=== PATIENT | male | born 1970 | race Caucasian/White ===

== ENCOUNTER 2021-08-07 11:17 | Inpatient (IN) | payer OTHER, SELFPAY ==
[2021-08-07 11:22] VITALS: BP 151/91; PULSE 76; RESP 18; O2SAT 98; BMI 31.9
--- NOTE | 2021-08-07 11:24 | ED.C_ITS ---
HPI - Psych General: Chief Complaint: Psychiatric Symptoms Stated Complaint: WANTS NPU ADMIT, STRESSED Time Seen by Provider: 08/07/21 11:20 Source: patient Mode of arrival: ambulatory History of Present Illness: 51-year-old female presents to the ER via EMS. 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 When the nurse and I went to talk to him he states he is having chest pain that is unchanged for over a week he also has elevated blood pressure he is not been taking medications. And then lastly he admits he is suicidal. Admits he has been suicidal and had thoughts of suicide for several years he is previously been adm itted to psychiatric unit for but he is never done anything to advance lethality is never actually tried to harm himself in any way. Does not express a particular plan at this time. complaint: suicidal ideation Onset (ago): week(s) Duration: intermittent Relieving factors: none Exacerbating factors: none Context: recent alcohol abuse (History of alcohol abuse) Associated psychiatric symptoms: depression Associated symptoms: Reports suicidal ideation Treatments prior to arrival: none If self harm: admits thoughts of self harm (Has had thoughts of self-harm for years has never advance lethality) Review of Systems Const: Denies: fever(s), chills, body aches, change in appetite, fatigue or malaise ENMT: Denies: throat pain, ear or mastoid pain, nasal discharge or nasal congestion Card: Denies: chest pain, edema, dyspnea on exertion or orthopnea Resp: Denies: dyspnea, productive cough or non-productive cough GI: Denies: abdominal pain, nausea, vomiting, hematemesis, coffee ground emesis, diarrhea, constipation, bloating, hematochezia or melena Psych: Reports: suicidal ideation [facility] ED PFSH: Medical History MDD (major depressive disorder), single episode, severe with psychotic features Psychiatric care Psychiatric care PTSD (post-traumatic stress disorder) Social History (Updated 08/07/21 @ 11:33 by Be Mcintosh DO) Alcohol intake: current Physical Exam Const: GENERAL APPEARANCE: cooperative and comfortable ORIENTAT ION/CONSCIOUSNESS: Yes awake, Yes oriented to person, Yes oriented to place and Yes oriented to time HENMT: COMMON NORMALS: normocephalic, atraumatic and hearing grossly normal bilaterally HEAD & SCALP: normocephalic and atraumatic Neck/C-Spine: COMMON NORMALS: no JVD Resp: COMMON NORMALS: normal respiratory effort, No retractions, No use of accessory muscles and clear to auscultation bilaterally AUSCULTATION: clear to auscultation bilaterally Cardio: COMMON NORMALS: no JVD, regular rate, regular rhythm and No murmurs present (Cardio) RATE: regular rate RHYTHM: regular rhythm GI: COMMON NORMALS: Soft to palpation and No hepatosplenomegaly present AUSCULTATION: Yes normoactive bowel sounds PALPATION: Yes Soft to palpation, No Tenderness to palpation present (GI), No Guarding due to palpation present (GI) and Yes No hepatosplenomegaly present Extremity: COMMON NORMALS: normal to inspection, capillary refill normal, no clubbing, cyanosis or edema, no calf tenderness and no pedal edema Neuro: SENSORIUM/ORIENTATION: Yes oriented to person, Yes oriented to place and Yes oriented to time Skin: COMMON NORMALS: no rashes or lesions noted GENERAL SKIN EXAM: no rashes or lesions noted Course Vital Signs: Vital signs: Vital Signs Temperature 98 F 08/08/21 06:00 Pulse Rate 96 08/08/21 06:00 Respiratory Rate 18 08/08/21 06:00 Blood Pressure 164/92 08/08/21 06:00 Pulse Oximetry 99 08/08/21 06:00 [facility] - Psych Medical Decision Making Patient expressing suicidal ideation. Discussed Dr. Wilson he recommends admission orders written see the note. Lab Data I reviewed the patient's lab results. : 08/07/21 12:05 08/07/21 12:05 Laboratory Results WBC 9.0 10^3/uL (4.0-10.0) 08/07/21 12:05 RBC 4.08 10^6/uL (4.1-5.3) L 08/07/21 12:05 Hgb 13.4 g/dL (11.7-16.6) 08/07/21 12:05 Hct 39.9 % (42.0-52.0) L 08/07/21 12:05 MCV 97.8 fl (80-94) H 08/07/21 12:05 MCH 32.8 pg (28.0-34.0) 08/07/21 12:05 MCHC 33.6 g/dL (30.0-36.0) 08/07/21 12:05 RDW 13.3 % (12.1-15.1) 08/07/21 12:05 Plt Count 303 10^3/cmm (130-400) 08/07/21 12:05 MPV 9.3 fL (7.4-10.4) 08/07/21 12:05 Neut % (Auto) 53.7 % 08/07/21 12:05 Lymph % (Auto) 32.2 % 08/07/21 12:05 Mclean % (Auto) 8.1 % 08/07/21 12:05 Eos % (Auto) 5.0 % 08/07/21 12:05 Baso % (Auto) 0.7 % 08/07/21 12:05 Neut # (Auto) 4.83 10^3/uL (1.8-7.7) 08/07/21 12:05 Lymph # (Auto) 2.9 10^3/uL (0.8-4.8) 08/07/21 12:05 Mclean # (Auto) 0.7 10^3/uL (0.2-0.9) 08/07/21 12:05 Eos # (Auto) 0.5 10^3/uL (0.0-0.8) 08/07/21 12:05 Baso # (Auto) 0.1 10^3/uL (0.0-0.1) 08/07/21 12:05 Nucleated RBC % (auto) 0 % 08/07/21 12:05 Nucleated RBCs # 0.0 /100WBC 08/07/21 12:05 Sodium 137 mmol/L (136-145) 08/07/21 12:05 Potassium 4.5 mmol/L (3.5-5.1) 08/07/21 12:05 Chloride 102 mmol/L (98-107) 08/07/21 12:05 Carbon Dioxide 25 mmol/L (22-29) 08/07/21 12:05 Anion Gap 14.5 (5-19) 08/07/21 12:05 BUN 21 mg/dL (6-20) H 08/07/21 12:05 Creatinine 0.7 mg/dL (0.7-1.2) 08/07/21 12:05 GFR Calculation 118.9 mL/min (90-130) 08/07/21 12:05 Glucose 99 mg/dL (65-115) 08/07/21 12:05 Calculated Osmolality 287 mOsm/kg (285-295) 08/07/21 12:05 Calcium 8.8 mg/dL (8.5-10.5) 08/07/21 12:05 Total Bilirubin 0.2 mg/dL (0.15-1.2) 08/07/21 12:05 AST 24 U/L (0-40) 08/07/21 12:05 ALT 11 U/L (0-41) 08/07/21 12:05 Alkaline Phosphatase 101 IU/L (40-130) 08/07/21 12:05 Troponin T Baseline 9 ng/L (0-15) 08/07/21 12:05 Troponin T 120 Minute 8.64 ng/L (0-15) 08/07/21 14:05 Delta Troponin T -0.36 ABS# (0-10) L 08/07/21 14:05 Total Protein 6.0 g/dL (6.6-8.7) L 08/07/21 12:05 Albumin 4.1 g/dL (3.5-5.2) 08/07/21 12:05 Globulin 1.9 g/dL (1.3-4.6) 08/07/21 12:05 Salicylates < 0.3 mg/dL (3-10) L 08/07/21 12:05 Acetaminophen < 5.0 ug/mL (10-30) L 08/07/21 12:05 Ethyl Alcohol < 10 mg/dL (0-10) 08/07/21 14:05 Discharge Plan Discharge Patient Disposition: Admitted As Inpatient Admit Provider: Jair Wilson Clinical Impression: Suicidal ideation, Acute psychosis, Chronic schizophrenia Condition: Stable Coding Level of Care Code ED Director Of Security for Carl[facility] Fwd Exam Comprehensive
--- NOTE | 2021-08-07 11:36 | ECG_ITS ---
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 Measurements Intervals [place] Rate: 70 P: 24 DE: 145 QRS: 25 QRSD: 88 T: 22 QT: 452 QTc: 488 Interpretive Statements SINUS RHYTHM MINIMAL VOLTAGE CRITERIA FOR LVH, CONSIDER NORMAL VARIANT [MEETS CRITERIA IN ONE OF: R(aVL), S(V1), R(V5), R(V5/V6)+S(V1)] PROLONGED QT INTERVAL No previous ECG available for comparison Electronically Signed On 08-07-2021 13:22:10 TILE CONDUIT LAYER by Sommer Jorge M.D. [id number]
[2021-08-07 11:58] VITALS: BP 149/101; PULSE 77; RESP 18; TEMP 36.8; O2SAT 97
[2021-08-07 12:17] LABS: Basophils # 0.1 10^3/uL (0.0-0.1); Basophils % 0.7 %; Eosinophils # 0.5 10^3/uL (0.0-0.8); Hematocrit 39.9 % (42.0-52.0); Hemoglobin 13.4 g/dL (11.7-16.6); Lymphocytes # 2.9 10^3/uL (0.8-4.8); Lymphocytes % 32.2 %; Mean Corpuscular HGB Conc 33.6 g/dL (30.0-36.0); Mean Corpuscular Hemoglobin 32.8 pg (28.0-34.0); Mean Corpuscular Volume 97.8 fl (80-94); Mean Platelet Volume 9.3 fL (7.4-10.4); Monocytes # 0.7 10^3/uL (0.2-0.9); Monocytes % 8.1 %; Neutrophils # 4.83 10^3/uL (1.8-7.7); Neutrophils % 53.7 %; Nucleated Red Blood Cells % 0 %; Platelet Count 303 10^3/cmm (130-400); Red Blood Count 4.08 10^6/uL (4.1-5.3); Red Cell Distribution Width 13.3 % (12.1-15.1)
[2021-08-07 12:49] LABS: Alanine Aminotransferase 11 U/L (0-41); Albumin Level 4.1 g/dL (3.5-5.2); Alkaline Phosphatase 101 IU/L (40-130); Anion Gap 14.5 (5-19); Aspartate Amino Transferase 24 U/L (0-40); Blood Urea Nitrogen 21 mg/dL (6-20); Calcium 8.8 mg/dL (8.5-10.5); Carbon Dioxide 25 mmol/L (22-29); Chloride 102 mmol/L (98-107); Globulin 1.9 g/dL (1.3-4.6); Glomerular Filtration Rate 118.9 mL/min (90-130); Glucose 99 mg/dL (65-115); Osmolality Calculated 287 mOsm/kg (285-295); Potassium 4.5 mmol/L (3.5-5.1); Sodium 137 mmol/L (136-145); Total Bilirubin 0.2 mg/dL (0.15-1.2)
[2021-08-07 12:55] LABS: Acetaminophen < 5.0 ug/mL (10-30); Salicylate < 0.3 mg/dL (3-10); Troponin(5th) Baseline 9 ng/L (0-15)
--- NOTE | 2021-08-07 13:36 | ECG_ITS ---
[facility] Test Date: 2021-08-07 Pat Name: Sharan Su Department: Room: Gender: Male Equity Director: : 1970 Requested By: Be Nelson Order Number: [id number] Chema MD: Sommer Jorge M.D. Measurements Intervals [place] Rate: 65 P: 0 [place]: 136 QRS: 24 QRSD: 88 T: 57 QT: 461 QTc: 480 Interpretive Statements SINUS RHYTHM PROLONGED QT INTERVAL Compared to ECG 08/07/2021 11:55:35 No significant changes Electronically Signed On 08-08-2021 5:27:09 SCHOOL ADMINISTRATOR by Sommer Jorge M.D. [id number]
[2021-08-07 14:37] LABS: Troponin 5 2HR 8.64 ng/L (0-15)
[2021-08-07 14:46] LABS: Troponin 5 2HR Delta -0.36 ABS# (0-10)
[2021-08-07 18:02] VITALS: BP 201/113; PULSE 78; RESP 18; TEMP 36.7; O2SAT 96
--- NOTE | 2021-08-07 18:28 | PC.NURSE ---
Admission 51-year-old female presents to the ER via EMS. 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 When the nurse and I went to talk to him he states he is having chest pain that is unchanged for over a week he also has elevated blood pressure he is not been taking medications. And then lastly he admits he is suicidal. Admits he has been suicidal and had thoughts of suicide for several years he is previously been admitted to psychiatric unit for but he is never done anything to advance lethality is never actually tried to harm himself in any way. Does not express a particular plan at this time. NPU- Hx of Depression, anxiety, PTSD per ER. Patient reports ETOH abuse with no official dx other than that. Drinking for 20 years daily, 1/2-1 gallon of whiskey at this time. Has been in rehab in the past but unsure when or where. It was not effective. States lost job and building to drinking more. Depression increasing with SI. Denies plan or intent but has intrusive thoughts.
[2021-08-07] MEDS: hyDROXYzine 25 mg Capsule 50 MG PO (18:47)
[2021-08-07] MEDS: acetaminophen 325 mg Tablet 650 MG PO (18:47)
[2021-08-07] MEDS: mirtazapine 15 mg Tablet 45 MG PO (21:58)
[2021-08-07] MEDS: gabapentin 400 mg Capsule 800 MG PO (21:58)
[2021-08-07 22:00] VITALS: BP 168/100; PULSE 70; RESP 18; TEMP 36.7; O2SAT 96
[2021-08-07] MEDS: LORazepam 2 mg Tablet PO (23:13)
[2021-08-08 02:43] LABS: Alcohol Level < 10 mg/dL (0-10)
[2021-08-08 06:00] VITALS: BP 164/92; PULSE 96; RESP 18; TEMP 36.6; O2SAT 99
[2021-08-08] MEDS: acetaminophen 325 mg Tablet 650 MG PO (07:13)
[2021-08-08] MEDS: nicotine 2 mg Gum BUCCAL (07:15)
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
[2021-08-08] MEDS: gabapentin 400 mg Capsule 800 MG PO ×3 (09:07→21:33)
[2021-08-08] MEDS: folic acid 1 mg Tablet PO (09:07)
[2021-08-08] MEDS: famotidine 20 mg Tablet PO ×2 (09:07→17:05)
[2021-08-08] MEDS: multivitamin therapeutic Tablet 1 TAB PO (09:07)
[2021-08-08] MEDS: thiamine 100 mg Tablet PO (09:07)
[2021-08-08] MEDS: nicotine 21 mg Patch 1 PATCH TRANSDERMA (09:16)
--- NOTE | 2021-08-08 12:59 | NPU.GN ---
[facility] Unit Group Topic: Self Care General Mood of Group: Sharan did attend and participate in group today. Hygiene was ok. He seems a bit shy and not very talkative in group.
[2021-08-08] MEDS: LORazepam 2 mg/mL INJ 1 mL IM (13:11)
[2021-08-08 13:25] VITALS: BP 118/87; PULSE 87; RESP 18; TEMP 36.6; O2SAT 98
[2021-08-08] MEDS: chlordiazePOXIDE 25 mg Capsule PO ×2 (13:31→21:33)
--- NOTE | 2021-08-08 15:44 | PC.NURSE ---
@ 1305 Patient noted with decreased responsiveness and thrashing around in bed. Patient observed for one minute.. Patient was disoriented, diaphoretic, tremors and noted nystagmus. Nurse requested prn medication for seizures. Physician notified.
[2021-08-08] MEDS: lurasidone 20 mg Tablet PO (17:05)
--- NOTE | 2021-08-08 18:42 | PC.NURSE ---
Meds- Patient had good morning with minimal withdraw s/sx. At 1305 patient was heard joy in room. Staff to room, patient CIWA scored at 23 at that time. Seizure like activity noted. IM Ativan given per protocol. notified and gave new orders to start Librium 25 mg PO Q6 hours routine. Initial dose given at 1330. Patient has since been calm. Medications have been effective.
[2021-08-08 20:24] VITALS: BP 156/103; PULSE 91; RESP 16; TEMP 36.6; O2SAT 98
[2021-08-08] MEDS: mirtazapine 15 mg Tablet 45 MG PO (21:33)
[2021-08-09] MEDS: chlordiazePOXIDE 25 mg Capsule PO ×4 (00:41→18:56)
[2021-08-09] MEDS: trazodone 50 mg Tablet PO (00:43)
[2021-08-09 05:42] VITALS: BP 154/93; PULSE 85; RESP 17; TEMP 36.7; O2SAT 98
[2021-08-09] MEDS: multivitamin therapeutic Tablet 1 TAB PO (08:55)
[2021-08-09] MEDS: thiamine 100 mg Tablet PO (08:55)
[2021-08-09] MEDS: folic acid 1 mg Tablet PO (08:55)
[2021-08-09] MEDS: famotidine 20 mg Tablet PO ×2 (08:55→16:58)
[2021-08-09] MEDS: gabapentin 400 mg Capsule 800 MG PO ×3 (08:55→21:30)
[2021-08-09] MEDS: nicotine 21 mg Patch 1 PATCH TRANSDERMA (11:02)
--- NOTE | 2021-08-09 11:15 | P.NPUPN_ITS ---
Subjective NPU Subjective: Interval history: Patient presents today doing much better he reports after we started Librium 25 mg 4 times daily scheduled after he did have a witnessed seizure. There was no sequela after a short postictal period. He reports he is feeling significantly better and is glad that he embarked on this recovery mission. He is doing fine on his home psychiatric medications right now and is eating and sleeping better. Mental Status Exam MSE Comments: This is an overweight versus obese white male in hospital scrubs with limited grooming and eye contact. No abnormal movements except for mild psychomotor retardation. Cooperative with exam in no acute distress. Speech was decreased rate and volume. Mood described as a little better, affect slightly subdued. Thought process organized. Thought contact: patient denies suicidal or homicidal ideation, there were no delusions reported or noted, patient endorsed some perceptual disturbances with his current withdrawal. Attention and concentration appeared intact and memory appeared reliable but none were formally tested. Patient is alert and oriented times three. Insight and judgment appear fair and impulse control appears limited. Vitals/I&O/Wt Last Vital Signs Temp 98.0 F 08/09/21 05:42 Pulse 85 08/09/21 05:42 Resp 17 08/09/21 05:42 BP 154/93 08/09/21 05:42 Pulse Ox 98 08/09/21 05:42 Weight last 48 hrs Weight 92.533 kg Data NPU : 08/07/21 12:05 08/07/21 12:05 A&P Assessment and plan (1) Alcohol withdrawal: Status: Acute (2) Alcohol dependence: Status: Acute (3) Suicidal ideation: Status: Acute (4) Acute psychosis: Status: Acute (5) Chronic schizophrenia: Status: Acute (6) PTSD (post-traumatic stress disorder): Status: Acute (7) MDD (major depressive disorder), single episode, severe with psychotic features: Status: Acute Plan This is a 51-year-old white male with a long history of alcohol addiction, depression and active alcohol withdrawal presents endorsing suicidality and a desire to engage in active treatment. 1.? Continue current medication.? We will manage his outpatient medications and observe and consider increasing the Latuda. 2.? Continue every 15 minute checks for safety. 3.? Encourage individual, group and milieu therapies. 4.? Encourage sober living treatment after discharge at the highest level of care to which he is willing to commit. 5.? Placed on CIWA.? Started Librium 25 mg every 6 hours scheduled with a plan to taper once he is stabilized. Involuntary Hold Information 96 Hour Hold: 96 Hour Involuntary Admission: No Attestations NPU Medical Necessity Statement*: Inpatient hospitalization is medically necessary and the clinically appropriate intervention at this time. We will monitor medication to make changes as indicated. Likely length of stay 2-4 days. Coding Level of Care Code Acute Residential Sales Consultant for Carlton Fwd Diagnoses Alcohol withdrawal F10.239 Alcohol dependence F10.20 Suicidal ideation R45.851 Acute psychosis F23 Chronic schizophrenia F20.9 PTSD (post-traumatic stress disorder) F43.10 MDD (major depressive disorder), single episode, severe with psychotic features F32.3
--- NOTE | 2021-08-09 12:46 | NPU.GN ---
[facility] Topic:Coping Skills General Mood of Group: Sharan did not attend group today. Sharan was aided today in completing the [facility] new patient packet for services.
[2021-08-09 13:44] VITALS: BP 129/81; PULSE 77; RESP 22; TEMP 36.8; O2SAT 98
[2021-08-09] MEDS: acetaminophen 325 mg Tablet 650 MG PO ×3 (15:49→23:10)
[2021-08-09] MEDS: lurasidone 20 mg Tablet PO (16:57)
[2021-08-09] MEDS: hyDROXYzine 25 mg Capsule 50 MG PO (18:49)
--- NOTE | 2021-08-09 18:52 | PC.NURSE ---
PATIENT REPORTS SOME MUSCLE ACHES A A LITTLE ANXIETY. TYL AND VISTARIL ADMINISTERED. WILL MONITOR FOR DRUG EFFECTIVENESS
[2021-08-09 20:13] VITALS: BP 150/84; PULSE 99; RESP 20; TEMP 37; O2SAT 96
[2021-08-09] MEDS: mirtazapine 15 mg Tablet 45 MG PO (21:30)
[2021-08-09] MEDS: cyclobenzaprine 10 mg Tablet PO (23:06)
[2021-08-10] MEDS: chlordiazePOXIDE 25 mg Capsule PO ×5 (01:04→21:26)
[2021-08-10] MEDS: ibuprofen 600 mg Tablet PO ×3 (05:23→15:38)
[2021-08-10 06:00] VITALS: BP 153/96; PULSE 90; RESP 18; O2SAT 99
[2021-08-10] MEDS: gabapentin 400 mg Capsule 800 MG PO ×3 (10:25→21:26)
[2021-08-10] MEDS: thiamine 100 mg Tablet PO (10:26)
[2021-08-10] MEDS: multivitamin therapeutic Tablet 1 TAB PO (10:26)
[2021-08-10] MEDS: cyclobenzaprine 10 mg Tablet PO (10:26)
[2021-08-10] MEDS: folic acid 1 mg Tablet PO (10:27)
[2021-08-10] MEDS: famotidine 20 mg Tablet PO ×2 (10:27→18:22)
[2021-08-10] MEDS: nicotine 21 mg Patch 1 PATCH TRANSDERMA (10:27)
--- NOTE | 2021-08-10 12:45 | NPU.GN ---
[facility] Topic:Symptoms/ Judgment Boat Activity General Mood of Group:Sharan did attend and participate well in group today. Hygiene is good. He was social in group and enjoyed today's activity. Terrence also met with [facility] and was aided to complete paperwork with [facility] for services for therapy , ITCD, and Therapy.
[2021-08-10 14:00] VITALS: BP 169/111; PULSE 78; RESP 26; TEMP 36.3; O2SAT 98
--- NOTE | 2021-08-10 15:23 | W.PM.NPUPNS ---
Subjective NPU Subjective: Interval history: The he said he has had a rough time withdrawing from alcohol. He has been on Librium 25 mg every 6 hours in addition to the CIWA protocol. He is depressed and continues to have suicidal thoughts in the back of his mind. He said he has PTSD and nightmares every night. He has never been on prazosin to help him with nightmares he would like to try it. He says he has a very difficult time in the past Sleeping. He wanted to be on Seroquel and says that he has required 300 mg. I told him that we were concerned about weight gain with that. He said he was not worried about that he would work it off. He agreed to try some trazodone instead. He said generally trazodone does not work but he does not know what dose he has been on before. Mental Status Exam MSE Comments: This is an overweight versus obese white male in hospital scrubs with limited grooming and eye contact. No abnormal movements except for mild psychomotor retardation. Cooperative with exam in no acute distress. Speech was decreased rate and volume. Mood described as depressed, affect slightly subdued. Thought process organized. Thought contact: patient denies suicidal or homicidal ideation, there were no delusions reported or noted, patient endorsed some perceptual disturbances with his current withdrawal. Attention and concentration appeared intact and memory appeared reliable but none were formally tested. Patient is alert and oriented times three. Insight and judgment appear fair and impulse control appears limited. Cognition: Patient Appearance: Appropriate Level of Consciousness: Awake, Alert and Appropriate Patient Cognition Impaired: No Ability to Follow Directions: Good Patient Orientation (long list): Person, Place, Time, Name, Birthday, Month and Year Comprehension Ability: No Impairment Hallucination Type: None Delusion Description: Paranoid Ideation Thought Process: Loose Associations Affect: Affect Description: Appropriate Depressive Symptoms: Hopelessness, Low Self Esteem, Recurrent Thoughts of or Suicide and Unhappiness Behavior: Patient Behavior: Appropriate Speech Pattern: Appropriate Vitals/I&O/Wt Last Vital Signs Temp 98.6 F 08/09/21 20:13 Pulse 90 08/10/21 06:00 Resp 18 08/10/21 06:00 BP 153/96 08/10/21 06:00 Pulse Ox 99 08/10/21 06:00 Data NPU : 08/07/21 12:05 08/07/21 12:05 A&P Assessment and plan (1) Alcohol withdrawal: Status: Acute (2) Alcohol dependence: Status: Acute (3) Suicidal ideation: Status: Acute (4) Acute psychosis: Status: Acute (5) Chronic schizophrenia: Status: Acute (6) PTSD (post-traumatic stress disorder): Status: Acute (7) MDD (major depressive disorder), single episode, severe with psychotic features: Status: Acute Plan This is a 51-year-old white male with a long history of alcohol addiction, depression and active alcohol withdrawal presents endorsing suicidality and a desire to engage in active treatment. 1.? Continue current medication.? We will increase Latuda to 40 mg. We will add trazodone 200 mg and prazosin 2 mg to help him sleep and nightmares. 2.? Continue every 15 minute checks for safety. 3.? Encourage individual, group and milieu therapies. 4.? Encourage sober living treatment after discharge at the highest level of care to which he is willing to commit. 5.? Placed on CIWA.? Librium 25 mg every 6 hours scheduled reduced to 8 hours daily Involuntary Hold Information 96 Hour Hold: 96 Hour Involuntary Admission: No Attestations NPU Medical Necessity Statement*: Inpatient hospitalization is medically necessary and the clinically appropriate intervention at this time. We will initiate medications and make changes as indicated. Coding Level of Care Code Acute Supervisor Mechanic Boilermaking for Carlton Arreaga Diagnoses Alcohol withdrawal F10.239 Alcohol dependence F10.20 Suicidal ideation R45.851 Acute psychosis F23 Chronic schizophrenia F20.9 PTSD (post-traumatic stress disorder) F43.10 MDD (major depressive disorder), single episode, severe with psychotic features F32.3
[2021-08-10] MEDS: OLANZapine 5 mg ODT PO (15:39)
[2021-08-10] MEDS: LORazepam 2 mg Tablet PO (15:43)
[2021-08-10] MEDS: lurasidone 20 mg Tablet 40 MG PO (18:22)
[2021-08-10] MEDS: mirtazapine 15 mg Tablet 45 MG PO (21:26)
[2021-08-10] MEDS: prazosin 1 mg Capsule 2 MG PO (21:26)
[2021-08-10] MEDS: trazodone 50 mg Tablet 200 MG PO (21:27)
[2021-08-10 22:00] VITALS: BP 142/95; PULSE 85; RESP 20; TEMP 36.7; O2SAT 97
[2021-08-11 06:00] VITALS: BP 152/93; PULSE 81; RESP 18; O2SAT 97
[2021-08-11] MEDS: chlordiazePOXIDE 25 mg Capsule PO ×3 (06:39→23:18)
[2021-08-11] MEDS: gabapentin 400 mg Capsule 800 MG PO ×3 (09:45→20:45)
[2021-08-11] MEDS: neomycin-poly-bacitracin oint 28 gm 1 APPLIC TOPICAL ×2 (09:45→19:30)
[2021-08-11] MEDS: folic acid 1 mg Tablet PO (09:46)
[2021-08-11] MEDS: famotidine 20 mg Tablet PO ×2 (09:46→18:47)
[2021-08-11] MEDS: thiamine 100 mg Tablet PO (09:46)
[2021-08-11] MEDS: multivitamin therapeutic Tablet 1 TAB PO (09:46)
[2021-08-11] MEDS: LORazepam 2 mg Tablet PO ×3 (09:50→19:13)
[2021-08-11] MEDS: nicotine 21 mg Patch 1 PATCH TRANSDERMA (10:09)
[2021-08-11 12:59] VITALS: BP 138/79; PULSE 91; RESP 20; TEMP 36.3; O2SAT 98
--- NOTE | 2021-08-11 13:29 | W.PM.NPUPNS ---
Subjective NPU Subjective: Interval history: He says that he slept somewhat better last night. He slept for 2 or 3 hours straight but still woke up about 4 times through the night and took 30 minutes to fall asleep each time. He said his nightmares were not as violent. He said that he might have been a little bit dizzy this morning. He tried to take a bath after taking his bedtime medications last night and slipped getting out of the bathtub. He says that he should have had a towel but stepped out onto the wet floor. He was told that he should not try to do things after taking the prazosin and trazodone 200 mg. He wanted to increase the prazosin to get the nightmares better but that did not seem like a good idea so far. He wants to get withdrawn completely from the alcohol and not go home to see him like he did last time and start drinking again. He required 1 dose of Ativan yesterday and and today at 11 AM. Mental Status Exam MSE Comments: This is an overweight versus obese white male in hospital scrubs with limited grooming and eye contact. No abnormal movements except for mild psychomotor retardation. Cooperative with exam in no acute distress. Speech was decreased rate and volume. Mood described as depressed, affect slightly subdued. Thought process organized. Thought contact: patient denies suicidal or homicidal ideation, there were no delusions reported or noted, patient endorsed some perceptual disturbances with his current withdrawal. Attention and concentration appeared intact and memory appeared reliable but none were formally tested. Patient is alert and oriented times three. Insight and judgment appear fair and impulse control appears limited. Cognition: Patient Appearance: Appropriate Level of Consciousness: Awake, Alert and Appropriate Patient Cognition Impaired: No Ability to Follow Directions: Good Patient Orientation (long list): Person, Place, Time, Name, Birthday, Month and Year Comprehension Ability: No Impairment Hallucination Type: None Delusion Description: Paranoid Ideation Thought Process: Loose Associations Affect: Affect Description: Appropriate Depressive Symptoms: Hopelessness, Low Self Esteem, Recurrent Thoughts of or Suicide and Unhappiness Behavior: Patient Behavior: Appropriate and Cooperative Speech Pattern: Appropriate and Clear Vitals/I&O/Wt Last Vital Signs Temp 97.4 F L 08/11/21 12:59 Pulse 91 08/11/21 12:59 Resp 20 H 08/11/21 12:59 BP 138/79 08/11/21 12:59 Pulse Ox 98 08/11/21 12:59 Data NPU : 08/07/21 12:05 08/07/21 12:05 A&P Assessment and plan (1) Alcohol withdrawal: Status: Acute (2) Alcohol dependence: Status: Acute (3) Suicidal ideation: Status: Acute (4) Acute psychosis: Status: Acute (5) Chronic schizophrenia: Status: Acute (6) PTSD (post-traumatic stress disorder): Status: Acute (7) MDD (major depressive disorder), single episode, severe with psychotic features: Status: Acute Plan This is a 51-year-old white male with a long history of alcohol addiction, depression and active alcohol withdrawal presents endorsing suicidality and a desire to engage in active treatment. 1.? Continue current medication.? Continue Latuda to 40 mg, trazodone 200 mg and prazosin 2 mg 2.? Continue every 15 minute checks for safety. 3.? Encourage individual, group and milieu therapies. 4.? Encourage sober living treatment after discharge at the highest level of care to which he is willing to commit. 5.? Placed on CIWA.? Librium 25 mg every 6 hours scheduled reduced to 8 hours daily Involuntary Hold Information 96 Hour Hold: 96 Hour Involuntary Admission: No Attestations NPU Medical Necessity Statement*: Inpatient hospitalization is medically necessary and the clinically appropriate intervention at this time. We will initiate medications and make changes as indicated. Coding Level of Care Code Acute Brazing Machine Setter for Carlton Arreaga Diagnoses Alcohol withdrawal F10.239 Alcohol dependence F10.20 Suicidal ideation R45.851 Acute psychosis F23 Chronic schizophrenia F20.9 PTSD (post-traumatic stress disorder) F43.10 MDD (major depressive disorder), single episode, severe with psychotic features F32.3
[2021-08-11 14:00] VITALS: BP 138/79; PULSE 91; RESP 20; TEMP 36.3; O2SAT 98
[2021-08-11] MEDS: lurasidone 20 mg Tablet 40 MG PO (18:47)
[2021-08-11] MEDS: cyclobenzaprine 10 mg Tablet PO (19:15)
[2021-08-11 19:39] VITALS: BP 142/88; PULSE 97; RESP 17; TEMP 36.7; O2SAT 96
[2021-08-11] MEDS: mirtazapine 15 mg Tablet 45 MG PO (20:40)
[2021-08-11] MEDS: prazosin 1 mg Capsule 2 MG PO (20:44)
[2021-08-12 05:43] VITALS: BP 142/88; PULSE 97; RESP 17; TEMP 36.7; O2SAT 96
[2021-08-12] MEDS: chlordiazePOXIDE 25 mg Capsule PO ×3 (06:15→22:55)
[2021-08-12] MEDS: gabapentin 400 mg Capsule 800 MG PO ×3 (08:21→20:54)
[2021-08-12] MEDS: thiamine 100 mg Tablet PO (08:21)
[2021-08-12] MEDS: nicotine 21 mg Patch 1 PATCH TRANSDERMA (08:21)
[2021-08-12] MEDS: multivitamin therapeutic Tablet 1 TAB PO (08:22)
[2021-08-12] MEDS: famotidine 20 mg Tablet PO ×2 (08:22→17:42)
[2021-08-12] MEDS: folic acid 1 mg Tablet PO (08:22)
[2021-08-12] MEDS: LORazepam 2 mg Tablet PO ×2 (08:22→15:22)
[2021-08-12] MEDS: ondansetron 4 MG Tablet PO (08:22)
[2021-08-12] MEDS: cyclobenzaprine 10 mg Tablet PO ×2 (08:38→16:45)
--- NOTE | 2021-08-12 10:59 | W.PM.NPUPNS ---
Subjective NPU Subjective: Interval history: he stopped me this morning asking if he could be prescribed more food. He says that he is always hungry. When I met with him just now in his room he said he was joking about that. I asked him if he wanted to decrease the Remeron. I told him that generally 15 mg works about as well for sleep as 45 mg. Reducing it to 15 mg might decrease its effect on his appetite. He said that he did not worry about his appetite ill, or what he eats because he will work off what ever weight he puts on working. 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 He understands that it is bad for his back which is already messed up but he has limited transportation options and has to do what he has to do. He says that he prazosin 2 mg does help his nightmares. They are less violent. He says that if he had fewer nightmares she would be able to function better. Nightmares caused him to be more irritable and difficult to be around during the day. He says that the trazodone does help somewhat but help him sleep. He actually urinated while he was sleeping last night and that was the first time he has done that. He really wants to increase the prazosin. He still is very mildly dizzy but he is confident that he can deal with an increased dose. He says that he has been having more shakes from the alcohol withdrawal. He says that he is shaking inside. He required 3 doses of Ativan yesterday. Mental Status Exam MSE Comments: This is an overweight versus obese white male in hospital scrubs with limited grooming and eye contact. No abnormal movements except for mild psychomotor retardation. Cooperative with exam in no acute distress. Speech was decreased rate and volume. Mood described as depressed, affect slightly subdued. Thought process organized. Thought contact: patient denies suicidal or homicidal ideation, there were no delusions reported or noted, patient endorsed some perceptual disturbances with his current withdrawal. Attention and concentration appeared intact and memory appeared reliable but none were formally tested. Patient is alert and oriented times three. Insight and judgment appear fair and impulse control appears limited. Cognition: Patient Appearance: Appropriate Level of Consciousness: Awake, Alert and Appropriate Patient Cognition Impaired: No Ability to Follow Directions: Good Patient Orientation (long list): Person, Place, Time, Name, Birthday, Month and Year Comprehension Ability: No Impairment Hallucination Type: None Delusion Description: Paranoid Ideation Thought Process: Loose Associations Affect: Affect Description: Calm Depressive Symptoms: Hopelessness, Low Self Esteem, Recurrent Thoughts of or Suicide and Unhappiness Behavior: Patient Behavior: Cooperative Speech Pattern: Clear Vitals/I&O/Wt Last Vital Signs Temp 98.0 F 08/12/21 05:43 Pulse 97 08/12/21 05:43 Resp 17 08/12/21 05:43 BP 142/88 08/12/21 05:43 Pulse Ox 96 08/12/21 05:43 Data NPU : 08/07/21 12:05 08/07/21 12:05 A&P Assessment and plan (1) Alcohol withdrawal: Status: Acute (2) Alcohol dependence: Status: Acute (3) Suicidal ideation: Status: Acute (4) Acute psychosis: Status: Acute (5) Chronic schizophrenia: Status: Acute (6) PTSD (post-traumatic stress disorder): Status: Acute (7) MDD (major depressive disorder), single episode, severe with psychotic features: Status: Acute Plan This is a 51-year-old white male with a long history of alcohol addiction, depression and active alcohol withdrawal presents endorsing suicidality and a desire to engage in active treatment. 1.? Continue current medication.? Continue Latuda to 40 mg, trazodone 200 mg and increase prazosin 4 mg 2.? Continue every 15 minute checks for safety. 3.? Encourage individual, group and milieu therapies. 4.? Encourage sober living treatment after discharge at the highest level of care to which he is willing to commit. 5.? Placed on CIWA.? Librium 25 mg every 6 hours scheduled reduced to 8 hours daily Involuntary Hold Information 96 Hour Hold: 96 Hour Involuntary Admission: No Attestations NPU Medical Necessity Statement*: Inpatient hospitalization is medically necessary and the clinically appropriate intervention at this time. We will initiate medications and make changes as indicated. Coding Level of Care Code Acute Ambulatory Technologist for Carlton Fwd Diagnoses Alcohol withdrawal F10.239 Alcohol dependence F10.20 Suicidal ideation R45.851 Acute psychosis F23 Chronic schizophrenia F20.9 PTSD (post-traumatic stress disorder) F43.10 MDD (major depressive disorder), single episode, severe with psychotic features F32.3
[2021-08-12 14:00] VITALS: BP 161/84; PULSE 85; RESP 16; O2SAT 99
[2021-08-12] MEDS: lurasidone 20 mg Tablet 40 MG PO (17:42)
[2021-08-12] MEDS: prazosin 1 mg Capsule 4 MG PO (20:50)
[2021-08-12] MEDS: mirtazapine 15 mg Tablet 45 MG PO (20:52)
[2021-08-12 21:15] VITALS: BP 132/81; PULSE 106; RESP 18; TEMP 36.9; O2SAT 95
[2021-08-12] MEDS: trazodone 50 mg Tablet 200 MG PO (22:54)
--- NOTE | 2021-08-13 00:55 | PC.NURSE ---
2255 requested trazodone for sleep. 2355- It was effective.
[2021-08-13 04:09] VITALS: BMI 31.9
[2021-08-13 06:00] VITALS: BP 128/85; PULSE 122; RESP 18; TEMP 36.6; O2SAT 92
[2021-08-13] MEDS: chlordiazePOXIDE 25 mg Capsule PO ×3 (06:23→22:00)
[2021-08-13] MEDS: nicotine 21 mg Patch 1 PATCH TRANSDERMA (06:25)
--- NOTE | 2021-08-13 08:28 | W.PM.NPUPNS ---
Subjective NPU Subjective: Interval history: He says that he still did not sleep that well last night. He said his nightmares were about the same as usual despite getting the prazosin 4 mg. He says that he has been walking around this morning and has not had any difficulty with the dizziness. He would like to try the prazosin again tonight. He continues to have difficulty with alcohol withdrawal. He takes the Librium 3 times a day and needed 2 doses of Ativan yesterday. Mental Status Exam MSE Comments: This is an overweight versus obese white male in hospital scrubs with limited grooming and eye contact. No abnormal movements except for mild psychomotor retardation. Cooperative with exam in no acute distress. Speech was decreased rate and volume. Mood described as depressed, affect slightly subdued. Thought process organized. Thought contact: patient denies suicidal or homicidal ideation, there were no delusions reported or noted, patient endorsed some perceptual disturbances with his current withdrawal. Attention and concentration appeared intact and memory appeared reliable but none were formally tested. Patient is alert and oriented times three. Insight and judgment appear fair and impulse control appears limited. Cognition: Patient Appearance: Appropriate Level of Consciousness: Awake, Alert and Appropriate Patient Cognition Impaired: No Ability to Follow Directions: Good Patient Orientation (long list): Person, Place, Time, Name, Birthday, Month and Year Comprehension Ability: No Impairment Hallucination Type: None Delusion Description: Paranoid Ideation Thought Process: Loose Associations Affect: Affect Description: Anxious Depressive Symptoms: Hopelessness, Low Self Esteem, Recurrent Thoughts of or Suicide and Unhappiness Behavior: Patient Behavior: Cooperative Speech Pattern: Appropriate and Clear Vitals/I&O/Wt Last Vital Signs Temp 97.8 F 08/13/21 06:00 Pulse 122 H 08/13/21 06:00 Resp 18 08/13/21 06:00 BP 128/85 08/13/21 06:00 Pulse Ox 92 08/13/21 06:00 Weight last 48 hrs Weight 92.533 kg Data NPU : 08/07/21 12:05 08/07/21 12:05 A&P Assessment and plan (1) Alcohol withdrawal: Status: Acute (2) Alcohol dependence: Status: Acute (3) Suicidal ideation: Status: Acute (4) Acute psychosis: Status: Acute (5) Chronic schizophrenia: Status: Acute (6) PTSD (post-traumatic stress disorder): Status: Acute (7) MDD (major depressive disorder), single episode, severe with psychotic features: Status: Acute Plan This is a 51-year-old white male with a long history of alcohol addiction, depression and active alcohol withdrawal presents endorsing suicidality and a desire to engage in active treatment. 1.? Continue current medication.? Continue Latuda to 40 mg, trazodone 200 mg and increase prazosin 4 mg 2.? Continue every 15 minute checks for safety. 3.? Encourage individual, group and milieu therapies. 4.? Encourage sober living treatment after discharge at the highest level of care to which he is willing to commit. 5.? Placed on CIWA.? Librium 25 mg every 6 hours scheduled reduced to 8 hours daily Involuntary Hold Information 96 Hour Hold: 96 Hour Involuntary Admission: No Attestations NPU Medical Necessity Statement*: Inpatient hospitalization is medically necessary and the clinically appropriate intervention at this time. We will initiate medications and make changes as indicated. Coding Level of Care Code Acute Cisco Certified Network Associate for Carlton Arreaga Diagnoses Alcohol withdrawal F10.239 Alcohol dependence F10.20 Suicidal ideation R45.851 Acute psychosis F23 Chronic schizophrenia F20.9 PTSD (post-traumatic stress disorder) F43.10 MDD (major depressive disorder), single episode, severe with psychotic features F32.3
[2021-08-13] MEDS: famotidine 20 mg Tablet PO ×2 (09:30→19:04)
[2021-08-13] MEDS: hyDROXYzine 25 mg Capsule 50 MG PO (09:30)
[2021-08-13] MEDS: gabapentin 400 mg Capsule 800 MG PO ×3 (09:30→20:17)
[2021-08-13] MEDS: multivitamin therapeutic Tablet 1 TAB PO (09:30)
[2021-08-13] MEDS: OLANZapine 5 mg ODT PO ×2 (09:31→12:38)
[2021-08-13] MEDS: folic acid 1 mg Tablet PO (09:31)
[2021-08-13] MEDS: thiamine 100 mg Tablet PO (09:31)
[2021-08-13] MEDS: LORazepam 2 mg Tablet PO ×4 (09:40→20:49)
[2021-08-13] MEDS: nicotine 2 mg Gum BUCCAL ×2 (11:00→15:57)
[2021-08-13] MEDS: ibuprofen 600 mg Tablet PO (12:22)
[2021-08-13] MEDS: cyclobenzaprine 10 mg Tablet PO (12:22)
[2021-08-13 14:00] VITALS: BP 115/82; PULSE 86; RESP 18; TEMP 36.7; O2SAT 96
[2021-08-13] MEDS: lurasidone 20 mg Tablet 40 MG PO (16:50)
[2021-08-13] MEDS: mirtazapine 15 mg Tablet 45 MG PO (20:17)
[2021-08-13] MEDS: trazodone 50 mg Tablet 200 MG PO (20:17)
[2021-08-13] MEDS: prazosin 1 mg Capsule 4 MG PO (20:18)
--- NOTE | 2021-08-13 20:50 | PC.NURSE ---
ATIVAN 2MG PO GIVEN FOR AN ELEVATED CIWA SCORE OF 12.
[2021-08-13 21:30] VITALS: BP 146/62; PULSE 86; RESP 18; TEMP 36.5; O2SAT 96
[2021-08-14] MEDS: chlordiazePOXIDE 25 mg Capsule PO ×3 (05:57→23:32)
[2021-08-14 06:00] VITALS: BP 123/76; PULSE 98; RESP 25; TEMP 36.8; O2SAT 95
[2021-08-14] MEDS: folic acid 1 mg Tablet PO (10:39)
[2021-08-14] MEDS: gabapentin 400 mg Capsule 800 MG PO ×3 (10:39→20:13)
[2021-08-14] MEDS: multivitamin therapeutic Tablet 1 TAB PO ×2 (10:39→10:40)
[2021-08-14] MEDS: thiamine 100 mg Tablet PO (10:40)
[2021-08-14] MEDS: famotidine 20 mg Tablet PO ×2 (10:40→18:05)
[2021-08-14] MEDS: neomycin-poly-bacitracin oint 28 gm 1 APPLIC TOPICAL (10:41)
[2021-08-14] MEDS: LORazepam 2 mg Tablet PO (10:51)
[2021-08-14] MEDS: nicotine 21 mg Patch 1 PATCH TRANSDERMA (10:52)
[2021-08-14] MEDS: cyclobenzaprine 10 mg Tablet PO (10:52)
--- NOTE | 2021-08-14 11:50 | NPU.GN ---
[facility] Topic: Ericka Dyer General Mood of Group: Sharan did attend and participate in group. He seems stable. His hygiene was ok and was social and pleasant with this commercial real estate underwriter and other clients in group.
--- NOTE | 2021-08-14 12:59 | W.PM.NPUPNS ---
Subjective NPU Subjective: Interval history: He says that he only woke up a couple times last night. He says that his nightmares are unchanged. He does not think that the prazosin has helped him so far. He denies any side effects from the prazosin. He has not been dizzy. He continues to complain of muscle spasms and headaches. He required 4 doses of Ativan yesterday in addition to his Librium. He denies any suicidal ideation today. Mental Status Exam MSE Comments: This is an overweight versus obese white male in hospital scrubs with limited grooming and eye contact. No abnormal movements. psychomotor activity is normal. Cooperative with exam in no acute distress. Speech was decreased rate and volume. Mood described as depressed, affect slightly subdued. Thought process organized. Thought contact: patient denies suicidal or homicidal ideation, there were no delusions reported or noted, patient endorsed some perceptual disturbances with his current withdrawal. Attention and concentration appeared intact and memory appeared reliable but none were formally tested. Patient is alert and oriented times three. Insight and judgment appear fair and impulse control appears limited. Cognition: Patient Appearance: Appropriate Level of Consciousness: Awake, Alert and Appropriate Patient Cognition Impaired: No Ability to Follow Directions: Good Patient Orientation (long list): Person, Place, Time, Name, Birthday, Month and Year Comprehension Ability: No Impairment Hallucination Type: None Delusion Description: Paranoid Ideation Thought Process: Loose Associations Affect: Affect Description: Appropriate and Calm Depressive Symptoms: Hopelessness, Low Self Esteem, Recurrent Thoughts of or Suicide and Unhappiness Behavior: Patient Behavior: Appropriate and Cooperative Speech Pattern: Appropriate and Clear Vitals/I&O/Wt Last Vital Signs Temp 98.3 F 08/14/21 06:00 Pulse 98 08/14/21 06:00 Resp 25 H 08/14/21 06:00 BP 123/76 08/14/21 06:00 Pulse Ox 95 08/14/21 06:00 Weight last 48 hrs Weight 92.533 kg Data NPU : 08/07/21 12:05 08/07/21 12:05 A&P Assessment and plan (1) Alcohol withdrawal: Status: Acute (2) Alcohol dependence: Status: Acute (3) Suicidal ideation: Status: Acute (4) Acute psychosis: Status: Acute (5) Chronic schizophrenia: Status: Acute (6) PTSD (post-traumatic stress disorder): Status: Acute (7) MDD (major depressive disorder), single episode, severe with psychotic features: Status: Acute Plan This is a 51-year-old white male with a long history of alcohol addiction, depression and active alcohol withdrawal presents endorsing suicidality and a desire to engage in active treatment. 1.? Continue current medication.? Continue Latuda to 40 mg, trazodone 200 mg and increase prazosin 6 mg 2.? Continue every 15 minute checks for safety. 3.? Encourage individual, group and milieu therapies. 4.? Encourage sober living treatment after discharge at the highest level of care to which he is willing to commit. 5.? Placed on CIWA.? Librium 25 mg every 8 hours daily Involuntary Hold Information 96 Hour Hold: 96 Hour Involuntary Admission: No Attestations NPU Medical Necessity Statement*: Inpatient hospitalization is medically necessary and the clinically appropriate intervention at this time. We will initiate medications and make changes as indicated. Coding Level of Care Code Acute Fur Designer for Carlton Arreaga Diagnoses Alcohol withdrawal F10.239 Alcohol dependence F10.20 Suicidal ideation R45.851 Acute psychosis F23 Chronic schizophrenia F20.9 PTSD (post-traumatic stress disorder) F43.10 MDD (major depressive disorder), single episode, severe with psychotic features F32.3
[2021-08-14 14:00] VITALS: BP 134/90; PULSE 96; RESP 18; TEMP 36.6; O2SAT 98
[2021-08-14] MEDS: hyDROXYzine 25 mg Capsule 50 MG PO (14:04)
[2021-08-14] MEDS: lurasidone 20 mg Tablet 40 MG PO (16:40)
[2021-08-14 19:58] VITALS: BP 144/67; PULSE 104; RESP 15; TEMP 36.7; O2SAT 97
[2021-08-14] MEDS: mirtazapine 15 mg Tablet 45 MG PO (20:13)
[2021-08-14] MEDS: prazosin 1 mg Capsule 6 MG PO (20:15)
[2021-08-15] MEDS: hyDROXYzine 25 mg Capsule 50 MG PO ×3 (00:07→20:59)
[2021-08-15] MEDS: OLANZapine 5 mg ODT PO ×2 (02:34→11:31)
[2021-08-15 06:00] VITALS: BP 148/61; PULSE 128; RESP 15; TEMP 37.2; O2SAT 96
[2021-08-15] MEDS: chlordiazePOXIDE 25 mg Capsule PO ×3 (06:28→23:07)
--- NOTE | 2021-08-15 08:54 | W.PM.NPUPNS ---
Subjective NPU Subjective: Interval history: He says that he slept fairly well last night. He woke up once coughing and like he was having withdrawal symptoms. They gave him some Zyprexa Zydis at 2 AM. He said that the dreams were not really nightmares but just sort of like normal dreams. They were not as violent as usual. He does not have any side effects from the prazosin so far. He is not dizzy. He is up walking around now at 9 AM.He only had 1 dose of Ativan yesterday as opposed to 4 doses the day before. Mental Status Exam MSE Comments: This is an overweight versus obese white male in hospital scrubs with limited grooming and eye contact. No abnormal movements. psychomotor activity is normal. Cooperative with exam in no acute distress. Speech was decreased rate and volume. Mood described as depressed, affect slightly subdued. Thought process organized. Thought contact: patient denies suicidal or homicidal ideation, there were no delusions reported or noted, patient endorsed some perceptual disturbances with his current withdrawal. Attention and concentration appeared intact and memory appeared reliable but none were formally tested. Patient is alert and oriented times three. Insight and judgment appear fair and impulse control appears limited. Cognition: Patient Appearance: Appropriate Level of Consciousness: Awake, Alert and Appropriate Patient Cognition Impaired: No Ability to Follow Directions: Good Patient Orientation (long list): Person, Place, Time, Name, Birthday, Month and Year Comprehension Ability: No Impairment Hallucination Type: None Delusion Description: Paranoid Ideation Thought Process: Loose Associations Affect: Affect Description: Appropriate Depressive Symptoms: Hopelessness, Low Self Esteem, Recurrent Thoughts of or Suicide and Unhappiness Behavior: Patient Behavior: Appropriate Speech Pattern: Appropriate Vitals/I&O/Wt Last Vital Signs Temp 99.0 F 08/15/21 06:00 Pulse 128 H 08/15/21 06:00 Resp 15 08/15/21 06:00 BP 148/61 08/15/21 06:00 Pulse Ox 96 08/15/21 06:00 Data NPU : 08/07/21 12:05 08/07/21 12:05 A&P Assessment and plan (1) Alcohol withdrawal: Status: Acute (2) Alcohol dependence: Status: Acute (3) Suicidal ideation: Status: Acute (4) Acute psychosis: Status: Acute (5) Chronic schizophrenia: Status: Acute (6) PTSD (post-traumatic stress disorder): Status: Acute (7) MDD (major depressive disorder), single episode, severe with psychotic features: Status: Acute Plan This is a 51-year-old white male with a long history of alcohol addiction, depression and active alcohol withdrawal presents endorsing suicidality and a desire to engage in active treatment. 1.? Continue current medication.? Continue Latuda to 40 mg, trazodone 200 mg and increase prazosin 6 mg. 2.? Continue every 15 minute checks for safety. 3.? Encourage individual, group and milieu therapies. 4.? Encourage sober living treatment after discharge at the highest level of care to which he is willing to commit. 5.? Placed on CIWA.? Librium 25 mg every 8 hours daily. Discontinue the Ativan. Involuntary Hold Information 96 Hour Hold: 96 Hour Involuntary Admission: No Attestations NPU Medical Necessity Statement*: Inpatient hospitalization is medically necessary and the clinically appropriate intervention at this time. We will initiate medications and make changes as indicated. Coding Level of Care Code Acute Lime Plant Operator for Carlton Arreaga Diagnoses Alcohol withdrawal F10.239 Alcohol dependence F10.20 Suicidal ideation R45.851 Acute psychosis F23 Chronic schizophrenia F20.9 PTSD (post-traumatic stress disorder) F43.10 MDD (major depressive disorder), single episode, severe with psychotic features F32.3
[2021-08-15] MEDS: ibuprofen 600 mg Tablet PO (09:24)
[2021-08-15] MEDS: cyclobenzaprine 10 mg Tablet PO ×2 (09:25→17:28)
[2021-08-15] MEDS: folic acid 1 mg Tablet PO (09:25)
[2021-08-15] MEDS: multivitamin therapeutic Tablet 1 TAB PO (09:25)
[2021-08-15] MEDS: thiamine 100 mg Tablet PO (09:25)
[2021-08-15] MEDS: gabapentin 400 mg Capsule 800 MG PO ×3 (09:25→20:21)
[2021-08-15] MEDS: famotidine 20 mg Tablet PO ×2 (09:25→17:28)
[2021-08-15] MEDS: nicotine 21 mg Patch 1 PATCH TRANSDERMA (09:26)
--- NOTE | 2021-08-15 11:55 | NPU.GN ---
[facility] Topic:Dice Breaker Group Activity General Mood of Group: Sharan did very well in group today. Very social and enjoyed group. He seems stable and his hygiene was good. He was respectful to all in group.
[2021-08-15 14:00] VITALS: BP 125/86; PULSE 108; RESP 17; TEMP 36.3; O2SAT 97
[2021-08-15] MEDS: LORazepam 2 mg Tablet PO (15:43)
[2021-08-15] MEDS: lurasidone 20 mg Tablet 40 MG PO (17:28)
[2021-08-15] MEDS: acetaminophen 325 mg Tablet 650 MG PO (17:28)
[2021-08-15] MEDS: nicotine 2 mg Gum BUCCAL ×2 (17:29→20:26)
[2021-08-15] MEDS: mirtazapine 15 mg Tablet 45 MG PO (20:21)
[2021-08-15] MEDS: prazosin 1 mg Capsule 6 MG PO (20:21)
[2021-08-15 22:00] VITALS: BP 132/85; PULSE 99; RESP 20; TEMP 36.5; O2SAT 96
--- NOTE | 2021-08-16 03:50 | PC.NURSE ---
Patient requested medication for anxiety. Visteril was given at 2058. Medication was effective.
[2021-08-16] MEDS: ibuprofen 600 mg Tablet PO (05:54)
[2021-08-16] MEDS: chlordiazePOXIDE 25 mg Capsule PO ×2 (05:55→15:46)
--- NOTE | 2021-08-16 05:57 | PC.NURSE ---
Patient came to the nurses station complaining of generalized pain. He rates his pain as a 8 on the pain scale. Motrin was given.
--- NOTE | 2021-08-16 05:58 | PC.NURSE ---
While at the nurses station patient ask for eye drops. Eye drops were given at 0556. Patient was satisfied.
[2021-08-16 06:00] VITALS: BP 137/89; PULSE 101; RESP 18; TEMP 36.4; O2SAT 97
--- NOTE | 2021-08-16 07:45 | W.PM.NPUPNS ---
Subjective NPU Subjective: Interval history: He says that his nightmares were bad again last night. He is anxiety and muscle spasms continue to be problematic. His sleep is better but he really would like some Seroquel to help him sleep better. He said that he did not have nightmares when he took Seroquel. He is not concerned about the appetite increase. He is concerned that if he continues to have nightmares he will drink when he gets home. He does not want to go to an alcohol treatment program. He was encouraged to think about it. He is not sure if it is safe for him to go back home. He is afraid that he will start drinking again. Mental Status Exam MSE Comments: This is an overweight versus obese white male in hospital scrubs with limited grooming and eye contact. No abnormal movements. psychomotor activity is normal. Cooperative with exam in no acute distress. Speech was normal rate and volume. Mood described as depressed but better. affect slightly subdued. Thought process organized. Thought contact: patient denies suicidal or homicidal ideation, there were no delusions reported or noted, patient endorsed some perceptual disturbances with his current withdrawal. Attention and concentration appeared intact and memory appeared reliable but none were formally tested. Patient is alert and oriented times three. Insight and judgment appear fair and impulse control appears limited. Cognition: Patient Appearance: Appropriate Level of Consciousness: Awake, Alert and Appropriate Patient Cognition Impaired: No Ability to Follow Directions: Good Patient Orientation (long list): Person, Place, Name, Birthday, Month and Year Comprehension Ability: No Impairment Hallucination Type: None Delusion Description: Paranoid Ideation Thought Process: Loose Associations Affect: Affect Description: Appropriate Depressive Symptoms: Hopelessness, Low Self Esteem, Recurrent Thoughts of or Suicide and Unhappiness Behavior: Patient Behavior: Appropriate and Cooperative Speech Pattern: Appropriate and Clear Vitals/I&O/Wt Last Vital Signs Temp 97.6 F 08/16/21 06:00 Pulse 101 H 08/16/21 06:00 Resp 18 08/16/21 06:00 BP 137/89 08/16/21 06:00 Pulse Ox 97 08/16/21 06:00 Data NPU : 08/07/21 12:05 08/07/21 12:05 A&P Assessment and plan (1) Alcohol withdrawal: Status: Acute (2) Alcohol dependence: Status: Acute (3) Suicidal ideation: Status: Acute (4) Acute psychosis: Status: Acute (5) Chronic schizophrenia: Status: Acute (6) PTSD (post-traumatic stress disorder): Status: Acute (7) MDD (major depressive disorder), single episode, severe with psychotic features: Status: Acute Plan This is a 51-year-old white male with a long history of alcohol addiction, depression and active alcohol withdrawal presents endorsing suicidality and a desire to engage in active treatment. 1.? Continue current medication.? Continue Latuda to 40 mg, trazodone 200 mg and prazosin 6 mg. Add Seroquel 100 mg QHS. 2.? Continue every 15 minute checks for safety. 3.? Encourage individual, group and milieu therapies. 4.? Encourage sober living treatment after discharge at the highest level of care to which he is willing to commit. 5.? Placed on CIWA.? Librium 25 mg every 8 hours daily. Discontinue the Ativan. Involuntary Hold Information 96 Hour Hold: 96 Hour Involuntary Admission: No Attestations NPU Medical Necessity Statement*: Inpatient hospitalization is medically necessary and the clinically appropriate intervention at this time. We will initiate medications and make changes as indicated. Coding Level of Care Code Acute Manager Managing for Carlton Arreaga Diagnoses Alcohol withdrawal F10.239 Alcohol dependence F10.20 Suicidal ideation R45.851 Acute psychosis F23 Chronic schizophrenia F20.9 PTSD (post-traumatic stress disorder) F43.10 MDD (major depressive disorder), single episode, severe with psychotic features F32.3
[2021-08-16] MEDS: gabapentin 400 mg Capsule 800 MG PO ×3 (09:58→21:02)
[2021-08-16] MEDS: folic acid 1 mg Tablet PO (09:58)
[2021-08-16] MEDS: multivitamin therapeutic Tablet 1 TAB PO (09:58)
[2021-08-16] MEDS: thiamine 100 mg Tablet PO (09:59)
[2021-08-16] MEDS: cyclobenzaprine 10 mg Tablet PO ×2 (09:59→18:26)
[2021-08-16] MEDS: famotidine 20 mg Tablet PO ×2 (09:59→17:32)
[2021-08-16] MEDS: hyDROXYzine 25 mg Capsule 50 MG PO (10:30)
[2021-08-16] MEDS: OLANZapine 5 mg ODT PO ×2 (10:30→13:30)
[2021-08-16] MEDS: neomycin-poly-bacitracin oint 28 gm 1 APPLIC TOPICAL (10:32)
[2021-08-16] MEDS: nicotine 21 mg Patch 1 PATCH TRANSDERMA (10:39)
--- NOTE | 2021-08-16 11:19 | NPU.GN ---
[facility] Topic: Thought Process General Mood of Group:Sharan did attend and partcipate in group. He was social, hygiene good and he seems stable and improving.
[2021-08-16] MEDS: nicotine 2 mg Gum BUCCAL (12:42)
[2021-08-16 14:00] VITALS: BP 144/90; PULSE 90; RESP 18; TEMP 36.5; O2SAT 97
[2021-08-16] MEDS: lurasidone 20 mg Tablet 40 MG PO (17:32)
[2021-08-16] MEDS: acetaminophen 325 mg Tablet 650 MG PO (17:53)
[2021-08-16] MEDS: prazosin 1 mg Capsule 6 MG PO (21:02)
[2021-08-16] MEDS: mirtazapine 15 mg Tablet 45 MG PO (21:02)
[2021-08-16] MEDS: quetiapine 100 mg Tablet PO (21:03)
[2021-08-16 22:00] VITALS: BP 131/87; PULSE 100; RESP 18; TEMP 36.9; O2SAT 99
[2021-08-17] MEDS: nicotine 2 mg Gum BUCCAL ×2 (05:56→15:57)
[2021-08-17 06:00] VITALS: BP 128/91; PULSE 85; RESP 18; TEMP 36.9; O2SAT 95
[2021-08-17] MEDS: chlordiazePOXIDE 25 mg Capsule PO ×2 (06:31→18:06)
--- NOTE | 2021-08-17 07:00 | W.PM.NPUPNS ---
Subjective NPU Subjective: Interval history: He says he slept a little better last night with the trazodone and Seroquel combined. He still had dreams which are about the same. They have not really decreased significantly with the prazosin. He denies any side effects from the prazosin so far. He is still very concerned about leaving and going back to drinking. He says that he would like to stay longer and is willing to pay the hospital bill if insurance stopped paying. Mental Status Exam MSE Comments: This is an overweight versus obese white male in hospital scrubs with limited grooming and eye contact. No abnormal movements. psychomotor activity is normal. Cooperative with exam in no acute distress. Speech was normal rate and volume. Mood described as depressed but better. affect slightly subdued. Thought process organized. Thought contact: patient denies suicidal or homicidal ideation, there were no delusions reported or noted, patient endorsed some perceptual disturbances with his current withdrawal. Attention and concentration appeared intact and memory appeared reliable but none were formally tested. Patient is alert and oriented times three. Insight and judgment appear fair and impulse control appears limited. Cognition: Patient Appearance: Appropriate Level of Consciousness: Awake, Alert and Appropriate Patient Cognition Impaired: No Ability to Follow Directions: Good Patient Orientation (long list): Person, Place, Time, Birthday, Month and Year Comprehension Ability: No Impairment Hallucination Type: None Delusion Description: Not Present Thought Process: Indecisive Affect: Affect Description: Appropriate and Calm Depressive Symptoms: Hopelessness, Low Self Esteem, Recurrent Thoughts of or Suicide and Unhappiness Behavior: Patient Behavior: Appropriate and Cooperative Speech Pattern: Appropriate and Clear Vitals/I&O/Wt Last Vital Signs Temp 98.4 F 08/17/21 06:00 Pulse 85 08/17/21 06:00 Resp 18 08/17/21 06:00 BP 128/91 08/17/21 06:00 Pulse Ox 95 08/17/21 06:00 Data NPU : 08/07/21 12:05 08/07/21 12:05 A&P Assessment and plan (1) Alcohol withdrawal: Status: Acute (2) Alcohol dependence: Status: Acute (3) Suicidal ideation: Status: Acute (4) Acute psychosis: Status: Acute (5) Chronic schizophrenia: Status: Acute (6) PTSD (post-traumatic stress disorder): Status: Acute (7) MDD (major depressive disorder), single episode, severe with psychotic features: Status: Acute Plan This is a 51-year-old white male with a long history of alcohol addiction, depression and active alcohol withdrawal presents endorsing suicidality and a desire to engage in active treatment. 1.? Continue current medication.? Continue Latuda to 40 mg, trazodone 200 mg and prazosin 6 mg and Seroquel 100 mg QHS. Will see if we can get some Vivactil. 2.? Continue every 15 minute checks for safety. 3.? Encourage individual, group and milieu therapies. 4.? Encourage sober living treatment after discharge at the highest level of care to which he is willing to commit. 5.? Placed on CIWA.? Librium 25 mg every 8 hours daily. Discontinue the Ativan. Involuntary Hold Information 96 Hour Hold: 96 Hour Involuntary Admission: No Attestations NPU Medical Necessity Statement*: Inpatient hospitalization is medically necessary and the clinically appropriate intervention at this time. We will initiate medications and make changes as indicated. Coding Level of Care Code Acute Electric Installer for Carlton Arreaga Diagnoses Alcohol withdrawal F10.239 Alcohol dependence F10.20 Suicidal ideation R45.851 Acute psychosis F23 Chronic schizophrenia F20.9 PTSD (post-traumatic stress disorder) F43.10 MDD (major depressive disorder), single episode, severe with psychotic features F32.3
[2021-08-17] MEDS: multivitamin therapeutic Tablet 1 TAB PO ×2 (08:19)
[2021-08-17] MEDS: famotidine 20 mg Tablet PO ×2 (08:19→18:06)
[2021-08-17] MEDS: folic acid 1 mg Tablet PO (08:19)
[2021-08-17] MEDS: gabapentin 400 mg Capsule 800 MG PO ×3 (08:19→20:42)
[2021-08-17] MEDS: thiamine 100 mg Tablet PO (08:20)
[2021-08-17] MEDS: hyDROXYzine 25 mg Capsule 50 MG PO (08:22)
[2021-08-17] MEDS: nicotine 21 mg Patch 1 PATCH TRANSDERMA (08:35)
[2021-08-17] MEDS: ibuprofen 600 mg Tablet PO (12:53)
[2021-08-17] MEDS: OLANZapine 5 mg ODT PO (12:54)
[2021-08-17 13:27] VITALS: BP 135/85; PULSE 95; RESP 22; TEMP 36.6; O2SAT 96
[2021-08-17] MEDS: lurasidone 20 mg Tablet 40 MG PO (16:38)
[2021-08-17 19:59] VITALS: BP 130/84; PULSE 83; RESP 19; TEMP 36.6; O2SAT 95
[2021-08-17] MEDS: prazosin 1 mg Capsule 6 MG PO (20:42)
[2021-08-17] MEDS: mirtazapine 15 mg Tablet 45 MG PO (20:42)
[2021-08-17] MEDS: quetiapine 100 mg Tablet PO (20:42)
[2021-08-18 06:00] VITALS: BP 136/92; PULSE 92; RESP 20; TEMP 36.6; O2SAT 97
--- NOTE | 2021-08-18 07:33 | P.NPUPN_ITS ---
Subjective NPU Subjective: Interval history: He says that he slept better last night. His nightmares were not as bad. His main complaint today is a headache. He said that he has had it for several weeks. With his muscle spasms and anxiety it does not seem surprising that he has a headache. He says Motrin helps it somewhat and he is going to ask for some. Mental Status Exam MSE Comments: This is an overweight versus obese white male in hospital scrubs with limited grooming and eye contact. No abnormal movements. psychomotor activity is normal. Cooperative with exam in no acute distress. Speech was normal rate and volume. Mood described as depressed but better. affect slightly subdued. Thought process organized. Thought contact: patient denies suicidal or homicidal ideation, there were no delusions reported or noted. Attention and concentration appeared intact and memory appeared reliable but none were formally tested. Patient is alert and oriented times three. Insight and judgment appear fair and impulse control appears limited. Cognition: Patient Appearance: Appropriate Level of Consciousness: Awake, Alert and Appropriate Patient Cognition Impaired: No Ability to Follow Directions: Good Patient Orientation (long list): Person, Place, Time, Birthday, Month and Year Comprehension Ability: No Impairment Hallucination Type: None Delusion Description: Not Present Thought Process: Appropriate Affect: Affect Description: Appropriate and Calm Depressive Symptoms: Hopelessness, Low Self Esteem, Recurrent Thoughts of or Suicide and Unhappiness Behavior: Patient Behavior: Appropriate and Cooperative Speech Pattern: Appropriate and Clear Vitals/I&O/Wt Last Vital Signs Temp 97.8 F 08/18/21 06:00 Pulse 92 08/18/21 06:00 Resp 20 H 08/18/21 06:00 BP 136/92 08/18/21 06:00 Pulse Ox 97 08/18/21 06:00 Data NPU : 08/07/21 12:05 08/07/21 12:05 A&P Assessment and plan (1) Alcohol withdrawal: Status: Acute (2) Alcohol dependence: Status: Acute (3) Suicidal ideation: Status: Acute (4) Acute psychosis: Status: Acute (5) Chronic schizophrenia: Status: Acute (6) PTSD (post-traumatic stress disorder): Status: Acute (7) MDD (major depressive disorder), single episode, severe with psychotic features: Status: Acute Plan This is a 51-year-old white male with a long history of alcohol addiction, depression and active alcohol withdrawal presents endorsing suicidality and a desire to engage in active treatment. Will try some Valium for muscle spasms. 1.? Continue current medication.? Continue Latuda to 40 mg, trazodone 200 mg and prazosin 6 mg and Seroquel 100 mg QHS. Will see if we can get some Vivactil. 2.? Continue every 15 minute checks for safety. 3.? Encourage individual, group and milieu therapies. 4.? Encourage sober living treatment after discharge at the highest level of care to which he is willing to commit. 5.? Placed on CIWA. Involuntary Hold Information 96 Hour Hold: 96 Hour Involuntary Admission: No Attestations NPU Medical Necessity Statement*: Inpatient hospitalization is medically necessary and the clinically appropriate intervention at this time. We will initiate medications and make changes as indicated. Coding Level of Care Code Acute Configuration Developer for Carlton Macield Diagnoses Alcohol withdrawal F10.239 Alcohol dependence F10.20 Suicidal ideation R45.851 Acute psychosis F23 Chronic schizophrenia F20.9 PTSD (post-traumatic stress disorder) F43.10 MDD (major depressive disorder), single episode, severe with psychotic features F32.3
[2021-08-18] MEDS: acetaminophen 325 mg Tablet 650 MG PO (07:48)
[2021-08-18] MEDS: folic acid 1 mg Tablet PO (08:55)
[2021-08-18] MEDS: famotidine 20 mg Tablet PO ×2 (08:55→19:20)
[2021-08-18] MEDS: gabapentin 400 mg Capsule 800 MG PO ×3 (08:55→20:57)
[2021-08-18] MEDS: nicotine 2 mg Gum BUCCAL (08:55)
[2021-08-18] MEDS: thiamine 100 mg Tablet PO (08:55)
[2021-08-18] MEDS: diazePAM 5 mg Tablet PO ×2 (08:55→19:19)
[2021-08-18] MEDS: multivitamin therapeutic Tablet 1 TAB PO (08:55)
[2021-08-18] MEDS: neomycin-poly-bacitracin oint 28 gm 1 APPLIC TOPICAL ×2 (10:20→19:20)
[2021-08-18 13:57] VITALS: BP 147/94; PULSE 99; RESP 20; TEMP 36.9; O2SAT 95
[2021-08-18] MEDS: nicotine 21 mg Patch 1 PATCH TRANSDERMA (14:26)
[2021-08-18] MEDS: lurasidone 20 mg Tablet 40 MG PO (16:29)
[2021-08-18 20:09] VITALS: BP 134/78; PULSE 83; RESP 18; TEMP 37.1; O2SAT 97
[2021-08-18] MEDS: mirtazapine 15 mg Tablet 45 MG PO (20:57)
[2021-08-18] MEDS: prazosin 1 mg Capsule 6 MG PO (20:57)
[2021-08-18] MEDS: quetiapine 100 mg Tablet PO (20:58)
[2021-08-18] MEDS: hyDROXYzine 25 mg Capsule 50 MG PO (22:43)
[2021-08-19 06:00] VITALS: BP 146/97; PULSE 102; RESP 18; TEMP 37; O2SAT 93
[2021-08-19] MEDS: acetaminophen 325 mg Tablet 650 MG PO (06:02)
--- NOTE | 2021-08-19 07:09 | P.NPUPN_ITS ---
Subjective NPU Subjective: Interval history: He was up at the nurses station at 6:30 AM looking for something for pain. He said that his headache was better yesterday but he woke up with a headache this morning. The nightmares were not as bad last night. He is appreciative for both of those improvements. Mental Status Exam MSE Comments: This is an overweight versus obese white male in hospital scrubs with limited grooming and eye contact. No abnormal movements. psychomotor activity is normal. Cooperative with exam in no acute distress. Speech was normal rate and volume. Mood described as depressed but better. affect slightly subdued. Thought process organized. Thought contact: patient denies suicidal or homicidal ideation, there were no delusions reported or noted. Attention and concentration appeared intact and memory appeared reliable but none were formally tested. Patient is alert and oriented times three. Insight and judgment appear fair and impulse control appears limited. Cognition: Patient Appearance: Appropriate Level of Consciousness: Awake, Alert and Appropriate Patient Cognition Impaired: No Ability to Follow Directions: Good Patient Orientation (long list): Person, Place, Time, Birthday, Month and Year Comprehension Ability: No Impairment Hallucination Type: None Delusion Description: Not Present Thought Process: Logical Affect: Affect Description: Calm Depressive Symptoms: Hopelessness, Low Self Esteem, Recurrent Thoughts of or Suicide and Unhappiness Behavior: Patient Behavior: Appropriate and Cooperative Speech Pattern: Clear Vitals/I&O/Wt Last Vital Signs Temp 98.6 F 08/19/21 06:00 Pulse 102 H 08/19/21 06:00 Resp 18 08/19/21 06:00 BP 146/97 08/19/21 06:00 Pulse Ox 93 08/19/21 06:00 Data NPU : 08/07/21 12:05 08/07/21 12:05 A&P Assessment and plan (1) Alcohol withdrawal: Status: Acute (2) Alcohol dependence: Status: Acute (3) Suicidal ideation: Status: Acute (4) Acute psychosis: Status: Acute (5) Chronic schizophrenia: Status: Acute (6) PTSD (post-traumatic stress disorder): Status: Acute (7) MDD (major depressive disorder), single episode, severe with psychotic features: Status: Acute Plan This is a 51-year-old white male with a long history of alcohol addiction, depression and active alcohol withdrawal presents endorsing suicidality and a desire to engage in active treatment. Will try some Valium for muscle spasms. 1.? Continue current medication.? Continue Latuda to 40 mg, trazodone 200 mg and prazosin 6 mg and Seroquel 100 mg QHS. Vivactil 10 mg at bedtime. Valium 5 mg twice daily. 2.? Continue every 15 minute checks for safety. 3.? Encourage individual, group and milieu therapies. 4.? Encourage sober living treatment after discharge at the highest level of care to which he is willing to commit. 5.? Placed on CIWA. Involuntary Hold Information 96 Hour Hold: 96 Hour Involuntary Admission: No Attestations NPU Medical Necessity Statement*: Inpatient hospitalization is medically necessary and the clinically appropriate intervention at this time. We will initiate medications and make changes as indicated. Coding Level of Care Code Acute Dust Collector Attendant for Carlton Fwd Diagnoses Alcohol withdrawal F10.239 Alcohol dependence F10.20 Suicidal ideation R45.851 Acute psychosis F23 Chronic schizophrenia F20.9 PTSD (post-traumatic stress disorder) F43.10 MDD (major depressive disorder), single episode, severe with psychotic features F32.3
[2021-08-19] MEDS: mirtazapine 15 mg Tablet 45 MG PO (08:30)
[2021-08-19] MEDS: nicotine 21 mg Patch 1 PATCH TRANSDERMA (09:06)
[2021-08-19] MEDS: folic acid 1 mg Tablet PO (09:07)
[2021-08-19] MEDS: gabapentin 400 mg Capsule 800 MG PO ×3 (09:07→20:28)
[2021-08-19] MEDS: multivitamin therapeutic Tablet 1 TAB PO (09:07)
[2021-08-19] MEDS: diazePAM 5 mg Tablet PO ×2 (09:07→17:20)
[2021-08-19] MEDS: famotidine 20 mg Tablet PO ×2 (09:07→17:20)
[2021-08-19] MEDS: thiamine 100 mg Tablet PO (09:07)
[2021-08-19] MEDS: neomycin-poly-bacitracin oint 28 gm 1 APPLIC TOPICAL ×2 (09:09→18:00)
[2021-08-19] MEDS: ibuprofen 600 mg Tablet PO (13:00)
[2021-08-19] MEDS: hyDROXYzine 25 mg Capsule 50 MG PO (13:00)
[2021-08-19] MEDS: cyclobenzaprine 10 mg Tablet PO (13:06)
[2021-08-19 14:00] VITALS: BP 146/97; PULSE 102; RESP 18; TEMP 37; O2SAT 93
[2021-08-19] MEDS: lurasidone 20 mg Tablet 40 MG PO (17:20)
[2021-08-19] MEDS: quetiapine 100 mg Tablet PO (20:28)
[2021-08-19] MEDS: prazosin 1 mg Capsule 6 MG PO (20:29)
[2021-08-19] MEDS: nicotine 2 mg Gum BUCCAL (20:32)
[2021-08-19 21:35] VITALS: BP 146/88; PULSE 95; RESP 20; TEMP 36.8; O2SAT 96
[2021-08-20 06:00] VITALS: BP 116/74; PULSE 108; RESP 22; TEMP 36.8; O2SAT 94
[2021-08-20] MEDS: famotidine 20 mg Tablet PO ×2 (08:30→17:08)
[2021-08-20] MEDS: thiamine 100 mg Tablet PO (08:30)
[2021-08-20] MEDS: folic acid 1 mg Tablet PO (08:30)
[2021-08-20] MEDS: gabapentin 400 mg Capsule 800 MG PO ×3 (08:30→20:21)
[2021-08-20] MEDS: nicotine 21 mg Patch 1 PATCH TRANSDERMA (08:30)
[2021-08-20] MEDS: multivitamin therapeutic Tablet 1 TAB PO (08:30)
[2021-08-20] MEDS: diazePAM 5 mg Tablet PO ×2 (08:30→17:08)
[2021-08-20] MEDS: neomycin-poly-bacitracin oint 28 gm 1 APPLIC TOPICAL ×2 (09:16→18:53)
--- NOTE | 2021-08-20 09:41 | PC.NURSE ---
Addendum entered by Kaylen Infante RN 08/20/21 18:56: [facility] CALLED TO REPORT THAT THEY HAD NO TRANSPORT AVAILABLE TODAY. DR NOTIFIED, PATIENT NOTIFIED, DC MOVED TO TOMORROW MORNING. Original Note: TRANSPORTATION DETECTIVE [employer] AND VICE CONTACTED [facility] TO ARRANGE TRANSPORT FOR PT UPON DISCHARGE. TRIP TICKET # [id number]
--- NOTE | 2021-08-20 10:00 | W.PM.NPUDCS ---
Diagnoses at Discharge Discharge Diagnosis (1) Alcohol withdrawal: Status: Acute (2) Alcohol dependence: Status: Acute (3) Suicidal ideation: Status: Acute (4) Acute psychosis: Status: Acute (5) Chronic schizophrenia: Status: Acute (6) PTSD (post-traumatic stress disorder): Status: Acute (7) MDD (major depressive disorder), single episode, severe with psychotic features: Status: Acute Reason for Visit Reason for Visit: WANTS NPU ADMIT, STRESSED Brief History: 51-year-old female presents to the ER via EMS.? He has several different complaints his initial presenting complaint was reported as wanted to be admitted to the [facility] because he was stressed.? When the nurse and I went to talk to him he states he is having chest pain that is unchanged for over a week he also has elevated blood pressure he is not been taking medications.? And then lastly he admits he is suicidal.? Admits he has been suicidal and had thoughts of suicide for several years he is previously been admitted to psychiatric unit for but he is never done anything to advance lethality is never actually tried to harm himself in any way.? Does not express a particular plan at this time. MD complaint: suicidal ideation Onset (ago): week(s) Duration: intermittent Relieving factors: none Exacerbating factors: none Context: recent alcohol abuse (History of alcohol abuse) Associated psychiatric symptoms: depression Associated symptoms: Reports suicidal ideation Treatments prior to arrival: none If self harm: admits thoughts of self harm (Has had thoughts of self-harm for years has never advance lethality) He was admitted to the neuropsychiatric unit for definitive treatment of those issues.? He presents today reporting that he is struggling with depression and dealing with his alcohol addiction.? He reports that he last drank about a day ago and is starting to have withdrawal symptoms.? He reports that he was having thoughts to kill self and so he came here for safety.? We did review his medications and he was open to make changes based on what we were able to determine.? He was fairly jittery and expressing feelings about those symptoms.? He is on the CIWA protocol and has received Ativan.? There was some report that was unclear about withdrawal seizures which he is reporting now a distant history of those.? We discussed the fact that generally speaking we have people in that situation go to the medical floor first to ensure safety.? We agreed that this television writer would review his chart and determine what he is taking.? After review we did review his recent treatment at [facility] wherein he had a psychiatric evaluation about 2-1/2 months ago.? We reviewed that note and he endorsed that the historical data in the note was accurate excerpt of that note will be included below.? Additionally most clear in the documentation was that there have been issues with nonadherence which have prevented the outpatient provider from increasing his Latuda and he cannot give a clear indication of what his adherence has been recently.? Additionally he just saw his provider yesterday.? We discussed with benefits and alternatives of ensuring he gets the medication as prescribed while we are managing his alcohol withdrawal and then proceed with decisions about medication changes. Hospital Course Hospital Course He slowly acclimated to the individual, group and milieu therapies provided. He was continued gabapentin 800 m g 3 times a day and Remeron 45 mg at bedtime. Latuda was increased to 40 mg at dinner. He complained about nightmares and prazosin added and was increased to 6 mg daily with mild benefit. Protriptyline 10 mg was added and he felt it helped his nightmares significantly. he tolerated these doses and showed steady improvement during his stay. He was able to contract for safety outside hospital prior to discharge. During the hospitalization, patient had routine laboratory studies which were within normal limits except for few outliers. Additionally there was a general medical evaluation which was also within normal limits and revealed no new acute processes. Discharge Summary: At the time of discharge, lethality was denied and psychosis was resolving. Mood and anxiety were well managed. Patient endorsed a plan to follow-up with the aftercare recommendations of the treatment team. Patient was evaluated and deemed to be absent credible lethality, and had achieved the maximum benefit from an inpatient hospitalization, so was discharged. Involuntary Hold Information 96 Hour Hold: 96 Hour Involuntary Admission: No Mental Status Exam MSE Comments: This is an overweight versus obese white male in hospital scrubs with limited grooming and eye contact. No abnormal movements. psychomotor activity is normal. Cooperative with exam in no acute distress. Speech was normal rate and volume. Mood described as depressed but better. affect slightly subdued. Thought process organized. Thought contact: patient denies suicidal or homicidal ideation, there were no delusions reported or noted. Attention and concentration appeared intact and memory appeared reliable but none were formally tested. Patient is alert and oriented times three. Insight and judgment appear fair and impulse control appears improved. Cognition: Patient Appearance: Appropriate Level of Consciousness: Awake, Alert and Appropriate Patient Cognition Impaired: No Ability to Follow Directions: Good Patient Orientation (long list): Person, Place, Time, Name, Age, Birthday and Year Comprehension Ability: No Impairment Hallucination Type: None Delusion Description: Not Present Thought Process: Appropriate Affect: Affect Description: Appropriate and Calm Depressive Symptoms: Hopelessness, Low Self Esteem, Recurrent Thoughts of or Suicide and Unhappiness Behavior: Patient Behavior: Appropriate and Cooperative Speech Pattern: Appropriate and Clear Discharge Data Studies Completed and Pending: Laboratory Results WBC 9.0 10^3/uL (4.0- 10.0) 08/07/21 12:05 RBC 4.08 10^6/uL (4.1 -5.3) L 08/07/21 12:05 Hgb 13.4 g/dL (11.7-1 6.6) 08/07/21 12:05 Hct 39.9 % (42.0-52.0 ) L 08/07/21 12:05 MCV 97.8 fl (80-94) H 08/07/21 12:05 MCH 32.8 pg (28.0-34. 0) 08/07/21 12:05 MCHC 33.6 g/dL (30.0-3 6.0) 08/07/21 12:05 RDW 13.3 % (12.1-15.1 ) 08/07/21 12:05 Plt Count 303 10^3/cmm (130 -400) 08/07/21 12:05 MPV 9.3 fL (7.4-10.4) 08/07/21 12:05 Neut % (Auto) 53.7 % 08/07/21 12:05 Lymph % (Auto) 32.2 % 08/07/21 12:05 Walsh % (Auto) 8.1 % 08/07/21 12:05 Eos % (Auto) 5.0 % 08/07/21 12:05 Baso % (Auto) 0.7 % 08/07/21 12:05 Neut # (Auto) 4.83 10^3/uL (1.8 -7.7) 08/07/21 12:05 Lymph # (Auto) 2.9 10^3/uL (0.8- 4.8) 08/07/21 12:05 Walsh # (Auto) 0.7 10^3/uL (0.2- 0.9) 08/07/21 12:05 Eos # (Auto) 0.5 10^3/uL (0.0- 0.8) 08/07/21 12:05 Baso # (Auto) 0.1 10^3/uL (0.0- 0.1) 08/07/21 12:05 Nucleated RBC % (a uto) 0 % 08/07/21 12:05 Nucleated RBCs # 0.0 /100WBC 08/07/21 12:05 Sodium 137 mmol/L (136-1 45) 08/07/21 12:05 Potassium 4.5 mmol/L (3.5-5 .1) 08/07/21 12:05 Chloride 102 mmol/L (98-10 7) 08/07/21 12:05 Carbon Dioxide 25 mmol/L (22-29) 08/07/21 12:05 Anion Gap 14.5 (5-19) 08/07/21 12:05 BUN 21 mg/dL (6-20) H 08/07/21 12:05 Creatinine 0.7 mg/dL (0.7-1. 2) 08/07/21 12:05 GFR Calculation 118.9 mL/min (90- 130) 08/07/21 12:05 Glucose 99 mg/dL (65-115) 08/07/21 12:05 Calculated Osmolal ity 287 mOsm/kg (285- 295) 08/07/21 12:05 Calcium 8.8 mg/dL (8.5-10 .5) 08/07/21 12:05 Total Bilirubin 0.2 mg/dL (0.15-1 .2) 08/07/21 12:05 AST 24 U/L (0-40) 08/07/21 12:05 ALT 11 U/L (0-41) 08/07/21 12:05 Alkaline Phosphata se 101 IU/L (40-130) 08/07/21 12:05 Troponin T Baselin e 9 ng/L (0-15) 08/07/21 12:05 Troponin T 120 Min [place] 8.64 ng/L (0-15) 08/07/21 14:05 Delta Troponin T -0.36 ABS# (0-10) L 08/07/21 14:05 Total Protein 6.0 g/dL (6.6-8.7 ) L 08/07/21 12:05 Albumin 4.1 g/dL (3.5-5.2 ) 08/07/21 12:05 Globulin 1.9 g/dL (1.3-4.6 ) 08/07/21 12:05 Salicylates < 0.3 mg/dL (3-10 ) L 08/07/21 12:05 Acetaminophen < 5.0 ug/mL (10-3 0) L 08/07/21 12:05 Ethyl Alcohol < 10 mg/dL (0-10) 08/07/21 14:05 Vitals: Last Vital Signs Temp 98.2 F 08/20/21 06:00 Pulse 108 H 08/20/21 06:00 Resp 22 H 08/20/21 06:00 BP 116/74 08/20/21 06:00 Pulse Ox 94 08/20/21 06:00 Discharge Plan Discharge Patient Disposition: Home Condition: Stable Prescriptions: New gabapentin 400 mg Capsule 800 mg PO TID 30 Days Qty: 180 0RF diazepam 5 mg Tablet 5 mg PO BID 30 Days Qty: 60 0RF Latuda 20 mg Tablet 40 mg PO DAILY@1700 30 Days Qty: 60 0RF prazosin 5 mg capsule 5 mg PO BEDTIME 30 Days Qty: 30 0RF quetiapine 100 mg Tablet 100 mg PO BEDTIME 30 Days Qty: 30 0RF trazodone 100 mg tablet 200 mg PO BEDTIME PRN (Reason: Sleep) 30 Days Qty: 60 0RF Continued gabapentin 400 mg capsule 800 mg PO TID 0RF famotidine 20 mg tablet 20 mg PO BID 0RF carisoprodol [Soma] 350 mg tablet 350 mg PO TID 0RF disulfiram 250 mg tablet 250 mg PO QAM 0RF Rx Instructions: must be abstinent from ETOH for >12 hours protriptyline 10 mg Tablet 10 mg PO BEDTIME 30 Days Qty: 30 0RF mirtazapine 45 mg tablet 45 mg PO BEDTIME 30 Days Qty: 30 0RF Discontinued Latuda 20 mg tablet 20 mg PO QPM 0RF Rx Instructions: must administer with food (at least 350 calories) Discharge Orders: Discharge Order (Routine); Ordered 08/20/21 Ordered By: Phani Olea Referrals: [facility] [Other] (Contact Amna) Lisette Watson MD [[place]] - 08/23/21 9:00 am (Sharan will also keep his appointment scheduled with Dr Watson on 09/25/21 @ 9am.) Discharge Diet: Regular Discharge Activity: Resume usual activity Patient Instructions: Opioid Safety Discharge Attestations NPU Time Spent in Discharge Care*: greater than 30 min Specific Discharge Activities: Specific discharge activities: educating patient, discussing with case consultant/social workers/dc planners, documenting/other paperwork and evaluating patient/reviewing data Coding Level of Care Code Acute Chg FW DC note Diagnoses Alcohol withdrawal F10.239 Alcohol dependence F10.20 Suicidal ideation R45.851 Acute psychosis F23 Chronic schizophrenia F20.9 PTSD (post-traumatic stress disorder) F43.10 MDD (major depressive disorder), single episode, severe with psychotic features F32.3
[2021-08-20 10:05] VITALS: BP 116/74; PULSE 108; RESP 22; TEMP 36.8; O2SAT 94
--- NOTE | 2021-08-20 11:06 | PC.NURSE ---
TEAM HAS DETERMINED PATIENT TO BE STABLE TO DC TODAY. PATIENT IS IN AGREENCE WITH THIS AND EXCITED TO DC. ALL PERSONAL BELONGINGS WILL BE RETURNED TO PATIENT UPON DC. DISCHARGING TO HOME VIA MEDICAID HOMESTATE. MEDICATIONS SENT TO [facility] PER PATIENTS CHOICE. DENIES SI/HI AND AVH AT THIS TIME.
--- NOTE | 2021-08-20 12:16 | W.PM.NPUPNS ---
Subjective NPU Subjective: Interval history: He says that he is doing better. He feels like the Valium 5 mg twice daily is helping his headaches and his muscle spasms. The nightmares have been significantly better since he has been on the protriptyline 10 mg at bedtime. He is happy about that. He was ready to go home but we could not get Medicaid ride for him. His mother was not able to come and get him. Mental Status Exam MSE Comments: This is an overweight versus obese white male in hospital scrubs with limited grooming and eye contact. No abnormal movements. psychomotor activity is normal. Cooperative with exam in no acute distress. Speech was normal rate and volume. Mood described as depressed but better. affect slightly subdued. Thought process organized. Thought contact: patient denies suicidal or homicidal ideation, there were no delusions reported or noted. Attention and concentration appeared intact and memory appeared reliable but none were formally tested. Patient is alert and oriented times three. Insight and judgment appear fair and impulse control appears improved. Cognition: Patient Appearance: Appropriate Level of Consciousness: Awake, Alert and Appropriate Patient Cognition Impaired: No Ability to Follow Directions: Good Patient Orientation (long list): Person, Place, Time, Name, Age, Birthday and Year Comprehension Ability: No Impairment Hallucination Type: None Delusion Description: Not Present Thought Process: Appropriate Affect: Affect Description: Appropriate and Calm Depressive Symptoms: Hopelessness, Low Self Esteem, Recurrent Thoughts of or Suicide and Unhappiness Behavior: Patient Behavior: Appropriate and Cooperative Speech Pattern: Appropriate and Clear Vitals/I&O/Wt Last Vital Signs Temp 98.2 F 08/20/21 10:05 Pulse 108 H 08/20/21 10:05 Resp 22 H 08/20/21 10:05 BP 116/74 08/20/21 10:05 Pulse Ox 94 08/20/21 10:05 Weight last 48 hrs Weight 96.615 kg Weight 96.615 kg Data NPU : 08/07/21 12:05 08/07/21 12:05 A&P Assessment and plan (1) Alcohol withdrawal: Status: Acute (2) Alcohol dependence: Status: Acute (3) Suicidal ideation: Status: Acute (4) Acute psychosis: Status: Acute (5) Chronic schizophrenia: Status: Acute (6) PTSD (post-traumatic stress disorder): Status: Acute (7) MDD (major depressive disorder), single episode, severe with psychotic features: Status: Acute Plan This is a 51-year-old white male with a long history of alcohol addiction, depression and active alcohol withdrawal presents endorsing suicidality and a desire to engage in active treatment. Will try some Valium for muscle spasms. 1.? Continue current medication.? Continue Latuda to 40 mg, trazodone 200 mg and prazosin 6 mg and Seroquel 100 mg QHS. Vivactil 10 mg at bedtime. Valium 5 mg twice daily. 2.? Continue every 15 minute checks for safety. 3.? Encourage individual, group and milieu therapies. 4.? Encourage sober living treatment after discharge at the highest level of care to which he is willing to commit. 5.? Placed on CIMD. Involuntary Hold Information 96 Hour Hold: 96 Hour Involuntary Admission: No Attestations NPU Medical Necessity Statement*: Inpatient hospitalization is medically necessary and the clinically appropriate intervention at this time. We will initiate medications and make changes as indicated. Coding Level of Care Code Acute Ruffling Hemmer Automatic for Carlton Arreaga Diagnoses Alcohol withdrawal F10.239 Alcohol dependence F10.20 Suicidal ideation R45.851 Acute psychosis F23 Chronic schizophrenia F20.9 PTSD (post-traumatic stress disorder) F43.10 MDD (major depressive disorder), single episode, severe with psychotic features F32.3
[2021-08-20 14:00] VITALS: BP 118/78; PULSE 98; RESP 17; TEMP 36.8; O2SAT 98
[2021-08-20] MEDS: OLANZapine 5 mg ODT PO (15:19)
[2021-08-20] MEDS: hyDROXYzine 25 mg Capsule 50 MG PO (15:19)
[2021-08-20] MEDS: lurasidone 20 mg Tablet 40 MG PO (17:08)
[2021-08-20 19:39] VITALS: BP 159/96; PULSE 102; RESP 18; TEMP 36.9; O2SAT 95
[2021-08-20] MEDS: quetiapine 100 mg Tablet PO (20:21)
[2021-08-20] MEDS: mirtazapine 15 mg Tablet 45 MG PO (20:22)
[2021-08-20] MEDS: prazosin 1 mg Capsule 6 MG PO (20:22)
[2021-08-21] MEDS: hyDROXYzine 25 mg Capsule 50 MG PO ×2 (03:42→11:17)
[2021-08-21 06:32] VITALS: BP 139/92; PULSE 86; RESP 19; TEMP 36.4; O2SAT 96
[2021-08-21] MEDS: thiamine 100 mg Tablet PO (08:35)
[2021-08-21] MEDS: multivitamin therapeutic Tablet 1 TAB PO (08:36)
[2021-08-21] MEDS: folic acid 1 mg Tablet PO (08:36)
[2021-08-21] MEDS: famotidine 20 mg Tablet PO (08:36)
[2021-08-21] MEDS: diazePAM 5 mg Tablet PO (08:36)
[2021-08-21] MEDS: gabapentin 400 mg Capsule 800 MG PO (08:38)
[2021-08-21] MEDS: nicotine 21 mg Patch 1 PATCH TRANSDERMA (09:21)
== END 2021-08-21 12:20 | disposition home or self-care (01) | DRG 885 ==
LOC: ER 11:48 → NP 15:55
PROVIDERS: Admitting Provider Psychiatry & Neurology Psychiatry; Emergency Provider Family Medicine; Visit Provider Psychiatry & Neurology Psychiatry
DX: F25.1 Schizoaffective disorder, depressive type (principal); R45.851 Suicidal ideations; F10.239 Alcohol dependence with withdrawal, unspecified; F43.10 Post-traumatic stress disorder, unspecified; G89.29 Other chronic pain; Z81.8 Family history of other mental and behavioral disorders
CPT/HCPCS: 80053; 80307; 84484; 85025; 93005; 96372; 97150; 97165; 99285; J2060; J3411; Q0162

== ENCOUNTER → 2021-11-02 13:41 | Outpatient (BNVA) | payer MEDICAID, OTHER, SELFPAY | PROVIDERS: Visit Provider Family Medicine | DX: K21.9 Gastro-esophageal reflux disease without esophagitis (principal); M54.16 Radiculopathy, lumbar region; G89.29 Other chronic pain; R25.2 Cramp and spasm; M19.90 Unspecified osteoarthritis, unspecified site; Z72.0 Tobacco use; M25.512 Pain in left shoulder; M25.511 Pain in right shoulder | CPT/HCPCS: 73030 ==

== ENCOUNTER 2022-01-18 16:12 | Inpatient (IN) | payer MEDICAID, SELFPAY ==
[2022-01-18 16:19] VITALS: BP 164/85; PULSE 107; RESP 18; TEMP 36.8; O2SAT 95; BMI 30.7
--- NOTE | 2022-01-18 16:20 | ECG_ITS ---
[facility] Test Date: 2022-01-18 Pat Name: Sharan Su Department: Room: Gender: Male Psychopaedic Nurse: : 1970 Requested By: Rome Us Order Number: [id number] Chema MD: Leroy Reardon M.D. Measurements Intervals Hinkley Rate: 95 P: 62 MT: 149 QRS: 26 QRSD: 90 T: 66 QT: 351 QTc: 441 Interpretive Statements SINUS RHYTHM Compared to ECG 08/07/2021 13:48:20 Prolonged QT interval no longer present Electronically Signed On 01-18-2022 21:17:31 CDT by Leroy Reardon M.D. [id number]
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
[2022-01-18 17:17] LABS: Basophils # 0.1 10^3/uL (0.0-0.1); Basophils % 0.6 %; Eosinophils # 0.1 10^3/uL (0.0-0.8); Eosinophils % 0.7 %; Hematocrit 45.5 % (42.0-52.0); Hemoglobin 15.8 g/dL (11.7-16.6); Lymphocytes # 4.3 10^3/uL (0.8-4.8); Lymphocytes % 49.5 %; Mean Corpuscular HGB Conc 34.7 g/dL (30.0-36.0); Mean Corpuscular Hemoglobin 30.7 pg (28.0-34.0); Mean Corpuscular Volume 88.3 fl (80-94); Mean Platelet Volume 8.9 fL (7.4-10.4); Monocytes # 0.5 10^3/uL (0.2-0.9); Monocytes % 5.4 %; Neutrophils # 3.81 10^3/uL (1.8-7.7); Neutrophils % 43.7 %; Nucleated Red Blood Cells % 0 %; Platelet Count 385 10^3/cmm (130-400); Red Blood Count 5.15 10^6/uL (4.1-5.3); Red Cell Distribution Width 13.9 % (12.1-15.1); White Blood Count 8.7 10^3/uL (4.0-10.0)
[2022-01-18 17:44] LABS: SARS Covid-2 Antigen Negative (Negative)
[2022-01-18 17:48] LABS: Amphetamines Screen Urine Negative (Negative); Barbiturates Screen Urine Negative (Negative); Benzodiazepines Screen Urine Positive (Negative); Cocaine Screen Urine Negative (Negative); Opiate Screen Urine Negative (Negative); PCP Screen Urine Negative (Negative); THC Screen Urine Negative (Negative)
[2022-01-18 17:51] LABS: Acetaminophen < 5.0 ug/mL (10-30); Alanine Aminotransferase 33 U/L (0-41); Albumin Level 4.8 g/dL (3.5-5.2); Alkaline Phosphatase 143 IU/L (40-130); Aspartate Amino Transferase 30 U/L (0-40); Blood Urea Nitrogen 16 mg/dL (6-20); Calcium 9.2 mg/dL (8.5-10.5); Carbon Dioxide 26 mmol/L (22-29); Chloride 101 mmol/L (98-107); Free T4 Free Thyroxine 1.09 ng/dL (0.82-1.77); Glomerular Filtration Rate 101.9 mL/min (90-130); Glucose 114 mg/dL (65-115); Lipase 21 U/L (13-60); Osmolality Calculated 294 mOsm/kg (285-295); Salicylate 1.8 mg/dL (3-10); Sodium 141 mmol/L (136-145); Thyroid Stimulating Hormone 0.84 uIU/mL (0.27-4.20); Total Bilirubin 0.2 mg/dL (0.15-1.2); Total Protein 7.8 g/dL (6.6-8.7)
[2022-01-18] MEDS: nicotine 21 mg Patch 1 PATCH TRANSDERMA (18:14)
--- NOTE | 2022-01-18 19:40 | PC.NURSE ---
Informed jacob sup, and tried calling report to NPU, unable to take at this time, taking med surg pt first, stated they would call back. Informed Jacob mullins that we needed more sitters, but sitters are unavailable.
[2022-01-18 20:31] LABS: Alcohol Level 299 mg/dL (0-10)
[2022-01-18 21:13] VITALS: BP 157/89; PULSE 99; RESP 20; TEMP 36.9; O2SAT 97
[2022-01-18 21:34] VITALS: BMI 30.7
[2022-01-18 22:00] VITALS: BP 157/89; PULSE 99; RESP 20; TEMP 36.9
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
[2022-01-19 06:00] VITALS: PULSE 77; RESP 19; TEMP 36.8; O2SAT 98
[2022-01-19] MEDS: folic acid 1 mg Tablet PO (08:36)
[2022-01-19] MEDS: thiamine 100 mg Tablet PO (08:36)
[2022-01-19] MEDS: multivitamin therapeutic Tablet 1 TAB PO (08:36)
[2022-01-19] MEDS: nicotine 21 mg Patch 1 PATCH TRANSDERMA (08:37)
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
[2022-01-19 14:00] VITALS: BP 160/82; PULSE 86; RESP 20; TEMP 36.1; O2SAT 98
[2022-01-19] MEDS: acetaminophen 325 mg Tablet 650 MG PO (16:33)
[2022-01-19] MEDS: lurasidone 80 mg Tablet 40 MG PO (17:56)
[2022-01-19 20:07] VITALS: BP 130/82; PULSE 86; RESP 16; TEMP 37.1; O2SAT 96
[2022-01-19] MEDS: diazePAM 5 mg Tablet PO (21:10)
[2022-01-20] MEDS: hyDROXYzine 25 mg Capsule 50 MG PO ×2 (01:20→15:45)
[2022-01-20] MEDS: trazodone 50 mg Tablet PO (01:20)
[2022-01-20 06:00] VITALS: BP 155/89; PULSE 78; RESP 14; TEMP 36.6; O2SAT 98
[2022-01-20] MEDS: multivitamin therapeutic Tablet 1 TAB PO (08:41)
[2022-01-20] MEDS: diazePAM 5 mg Tablet PO ×2 (08:41→20:17)
[2022-01-20] MEDS: thiamine 100 mg Tablet PO (08:41)
[2022-01-20] MEDS: folic acid 1 mg Tablet PO (08:41)
--- NOTE | 2022-01-20 10:24 | W.PM.NPUPNS ---
Subjective NPU Subjective: Sharan Su is a 51 year old male admitted admitted to the neuropsychiatric unit with complaints of being suicidal with decreased energy diminished concentration increased presence of auditory hallucinations along with reports that he had been drinking alcohol again after he had been sober for approximately 6 months.?He reports struggles with sleep last night without the seroquel. He reports that his voices remain prominent and reports messing up by restarting ETOH again after months of sobriety. Continues reports of hopelessness and suicidal thoughts but no active plan reported to staff. He reports a history of chronically hearing mumbling in his head even if he is not depressed or manic. Mental Status Exam MSE Comments: This is an overweight versus obese white male in hospital scrubs with limited grooming and eye contact. No abnormal movements except for mild psychomotor retardation. Cooperative with exam in mild distress. Speech was diminished rate and volume. Mood described as depressed, affect remains restricted.? Thought process organized. Thought contact: patient endorsed? suicidal but no homicidal ideation, there were no delusions reported or noted, patient had no clear evidence of tremors,? Attention and concentration appeared intact and memory appeared reliable but none were formally tested. Patient is alert and oriented times three. Insight and judgment appeared poor.? Impulse control: poor.? Vitals/I&O/Wt Last Vital Signs Temp 98.2 F 01/20/22 14:00 Pulse 76 01/20/22 14:00 Resp 18 01/20/22 14:00 BP 130/76 01/20/22 14:00 Pulse Ox 97 01/20/22 14:00 Weight last 48 hrs Weight 88.904 kg Data NPU : 01/18/22 16:48 01/18/22 16:48 A&P Assessment and plan (1) Schizoaffective disorder, depressive type: Status: Acute Plan 1) restart seroquel, increase to 300mg at night, continue latuda with plan to reduce and increase seroquel 2) needs dual diagnosis treatment 3) TO-15 minute checks, engage patient in milieu, group, individual therapy. Involuntary Hold Information 96 Hour Hold: 96 Hour Involuntary Admission: No Attestations NPU Medical Necessity Statement*: Inpatient hospitalization is medically necessary and the clinically appropriate intervention at this time with length of stay 3-6 days. ? 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
[2022-01-20] MEDS: nicotine 21 mg Patch 1 PATCH TRANSDERMA (11:17)
[2022-01-20 14:00] VITALS: BP 130/76; PULSE 76; RESP 18; TEMP 36.8; O2SAT 97
--- NOTE | 2022-01-20 15:46 | PC.NURSE ---
PRN VISTARIL 50 MG GIVEN PO PER PT C/O STATED ANXIETY
[2022-01-20] MEDS: lurasidone 80 mg Tablet 40 MG PO (16:51)
[2022-01-20] MEDS: famotidine 20 mg Tablet PO (16:51)
[2022-01-20] MEDS: quetiapine 300 mg Tablet PO (20:17)
[2022-01-20 22:00] VITALS: BP 146/97; PULSE 72; RESP 20; TEMP 36.7; O2SAT 98
[2022-01-21] MEDS: trazodone 50 mg Tablet PO (02:01)
[2022-01-21 06:00] VITALS: BP 138/86; PULSE 74; RESP 19; TEMP 36.7; O2SAT 97
[2022-01-21] MEDS: multivitamin therapeutic Tablet 1 TAB PO (09:28)
[2022-01-21] MEDS: diazePAM 5 mg Tablet PO ×2 (09:28→20:03)
[2022-01-21] MEDS: thiamine 100 mg Tablet PO (09:28)
[2022-01-21] MEDS: folic acid 1 mg Tablet PO (09:28)
[2022-01-21] MEDS: famotidine 20 mg Tablet PO ×2 (09:28→17:14)
[2022-01-21] MEDS: nicotine 2 mg Gum BUCCAL ×3 (11:27→17:14)
--- NOTE | 2022-01-21 13:30 | P.NPUPN_ITS ---
Subjective NPU Subjective: Sharan Su is a 51 year old male admitted admitted to the neuropsychiatric unit with complaints of being suicidal with decreased energy,diminished concentration, increased presence of auditory hallucinations. He reports to use of alcohol again prior to admission and reports that he has continued to be distracted by voices and struggles with sleeping at night with combination of seroquel and latuda. He reports no manic symptoms. He reports that he continues to be bothered by the mumbling. He reports occasional suicidal thoughts but reports he would speak with staff if they became worse. Mental Status Exam MSE Comments: This is an overweight versus obese white male in hospital scrubs with limited grooming and eye contact. He had continued evidence of mild psychomotor retardation. Cooperative with exam in mild distress. Speech was diminished rate and volume. Mood described as depressed, affect remains? restricted.? Thought process was superficial today. Thought contact: patient endorsed? suicidal but no homicidal ideation, there were no delusions reported or noted, he did at times paranoid. ,? Attention and concentration appeared intact and memory appeared reliable but none were formally tested. Patient is alert and oriented times three. Insight and judgment appeared poor.? Impulse control: poor.? Vitals/I&O/Wt Last Vital Signs Temp 98.9 F 01/21/22 20:46 Pulse 96 01/21/22 20:46 Resp 17 01/21/22 20:46 BP 140/90 01/21/22 20:46 Pulse Ox 95 01/21/22 20:46 Weight last 48 hrs Weight 95.254 kg Data NPU : 01/18/22 16:48 01/18/22 16:48 A&P Assessment and plan (1) Schizoaffective disorder, depressive type: Status: Acute (2) Depression: Status: Acute (3) Depression with suicidal ideation: Status: Acute Plan 1) increase to 400mg at night tommorow and decrease latuda with plan to di scontinue due to lack of improvement as a single agent in the past with treating his psychotic symptoms. 2) TO-15 minute checks, 3) engage patient in milieu, group, individual therapy. Involuntary Hold Information 96 Hour Hold: 96 Hour Involuntary Admission: No Attestations NPU Medical Necessity Statement*: Inpatient hospitalization is medically necessary and the clinically appropriate intervention at this time with length of stay 3-6 days. ? 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
[2022-01-21 14:00] VITALS: BP 117/75; PULSE 89; RESP 15; TEMP 36.8; O2SAT 97
[2022-01-21] MEDS: lurasidone 80 mg Tablet 40 MG PO (17:14)
[2022-01-21] MEDS: quetiapine 300 mg Tablet PO (20:03)
[2022-01-21 20:46] VITALS: BP 140/90; PULSE 96; RESP 17; TEMP 37.2; O2SAT 95
[2022-01-22] MEDS: OLANZapine 5 mg ODT PO (00:18)
[2022-01-22 06:00] VITALS: BP 145/91; PULSE 72; RESP 18; TEMP 36.3; O2SAT 97
[2022-01-22] MEDS: simethicone 80 mg Chew PO ×2 (07:07→18:33)
[2022-01-22] MEDS: nicotine 21 mg Patch 1 PATCH TRANSDERMA (09:24)
[2022-01-22] MEDS: diazePAM 5 mg Tablet PO ×2 (09:25→19:59)
[2022-01-22] MEDS: multivitamin therapeutic Tablet 1 TAB PO (09:25)
[2022-01-22] MEDS: folic acid 1 mg Tablet PO (09:25)
[2022-01-22] MEDS: famotidine 20 mg Tablet PO ×2 (09:25→20:00)
[2022-01-22] MEDS: thiamine 100 mg Tablet PO (09:25)
[2022-01-22] MEDS: acetaminophen 325 mg Tablet 650 MG PO ×2 (09:25→13:37)
[2022-01-22] MEDS: hyDROXYzine 25 mg Capsule 50 MG PO (13:02)
--- NOTE | 2022-01-22 13:06 | PC.NURSE ---
PRN Vistaril Pt was pacing halls and frequently moving between common room and the bench outside nurses station to sit. Pt came up to nurses station and requested medication for anxiety. Med nurse notified. 50 mg Vistaril given PO.
[2022-01-22 14:00] VITALS: BP 165/95; PULSE 86; RESP 18; TEMP 36.6; O2SAT 98
[2022-01-22] MEDS: lurasidone 80 mg Tablet 40 MG PO (16:57)
--- NOTE | 2022-01-22 18:11 | P.NPUPN_ITS ---
Subjective NPU Subjective: Patient presents today reporting that he allowed his alcohol use as well as being out of appropriate treatment get him in trouble again. He reports that he had only been drinking for about days. Though he had been nonadherent to treatment at some level. Blood alcohol was 299 and reports that he has been staying in a RV. Medications have been restarted and he reports that he is tolerating them well. He is working with the social work team to look at appropriate discharge plans given his TBI and the benefit he would likely receive from supportive outpatient services. He reports that he is eating and sleeping better. No withdrawal symptoms. Mental Status Exam MSE Comments: This is an overweight versus obese white male in hospital scrubs with adequate grooming and eye contact. No abnormal movements except for mild psychomotor retardation. Cooperative with exam in mild distress. Speech was diminished rate and volume. Mood described as depressed but a little better affect remains? restricted.? Thought process was superficial today. ? Thought contact: patient endorsed?improving suicidal but no homicidal ideation, there were no delusions reported or noted, he denied hallucinations.? Attention and concentration appeared intact and memory appeared reliable but none were formally tested. Patient is alert and oriented times three. Insight and judgment appeared limited.? Impulse control: poor.? Vitals/I&O/Wt Last Vital Signs Temp 98 F 01/22/22 14:00 Pulse 86 01/22/22 14:00 Resp 18 01/22/22 14:00 BP 165/95 01/22/22 14:00 Pulse Ox 98 01/22/22 14:00 Weight last 48 hrs Weight 95.254 kg Data NPU : 01/18/22 16:48 01/18/22 16:48 A&P Assessment and plan (1) Schizoaffective disorder, depressive type: Status: Acute (2) Depression with suicidal ideation: Status: Acute (3) Tobacco abuse: Status: Acute (4) PTSD (post-traumatic stress disorder): Status: Acute Plan This is a 51-year-old white male with a long history of alcohol addiction, depression and active alcohol use who presents endorsing suicidality and a desire to engage in active treatment. 1.? Continue current medication.?? 2.? Continue every 15 minute checks for safety. 3.? Encourage individual, group and milieu therapies. 4.? Encourage sober living treatment after discharge at the highest level of care to which he is willing to commit. 5.? Placed on CIWA. Involuntary Hold Information 96 Hour Hold: 96 Hour Involuntary Admission: No Attestations NPU Medical Necessity Statement*: Inpatient hospitalization is medically necessary and the clinically appropriate intervention at this time. We will monitor medication to make changes as indicated. Likely length of stay 2-4 days. 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
--- NOTE | 2022-01-22 18:33 | PC.NURSE ---
PRN MYLICON 80 MG GIVEN PO PER C/O GAS
[2022-01-22] MEDS: quetiapine 100 mg Tablet 400 MG PO (19:59)
[2022-01-22] MEDS: trazodone 50 mg Tablet PO (20:00)
[2022-01-22 20:23] VITALS: BP 150/83; PULSE 74; RESP 15; TEMP 36.6; O2SAT 95
[2022-01-23 06:00] VITALS: PULSE 104; TEMP 36.3
[2022-01-23 07:15] VITALS: BP 116/83; PULSE 104; RESP 16; TEMP 36.3; O2SAT 96
[2022-01-23] MEDS: simethicone 80 mg Chew PO ×2 (07:55→23:28)
[2022-01-23] MEDS: thiamine 100 mg Tablet PO (07:55)
[2022-01-23] MEDS: folic acid 1 mg Tablet PO (07:56)
[2022-01-23] MEDS: famotidine 20 mg Tablet PO ×2 (07:56→20:25)
[2022-01-23] MEDS: multivitamin therapeutic Tablet 1 TAB PO (07:56)
[2022-01-23] MEDS: diazePAM 5 mg Tablet PO ×2 (07:57→20:25)
[2022-01-23] MEDS: nicotine 21 mg Patch 1 PATCH TRANSDERMA (08:10)
[2022-01-23] MEDS: OLANZapine 5 mg ODT PO ×2 (08:12→13:18)
[2022-01-23] MEDS: hyDROXYzine 25 mg Capsule 50 MG PO (13:18)
[2022-01-23] MEDS: gabapentin 400 mg Capsule PO ×2 (13:45→20:25)
[2022-01-23] MEDS: tizanidine 4 mg Tablet 2 MG PO (13:45)
[2022-01-23 14:00] VITALS: BP 148/80; PULSE 86; RESP 18; TEMP 36.6; O2SAT 99
[2022-01-23] MEDS: lurasidone 80 mg Tablet 20 MG PO (16:39)
--- NOTE | 2022-01-23 17:50 | P.NPUPN_ITS ---
Subjective NPU Subjective: Patient presents today reporting that he is having some pain but he is adjusting to his medications being restarted. We reviewed his medications and make sure there were no medications overlooked. He had been on none but that had not for prescription this last time we reduced the dose in half and agreed his outpatient provider would have to manage that. We also agree that we applied a muscle relaxer in keeping with previous prescriptions but he would not write that at discharge once again deferring to outpatient providers. We discussed the likelihood of discharge in the next 48 hours. Mental Status Exam MSE Comments: This is an overweight versus obese white male in hospital scrubs with adequate grooming and eye contact. No abnormal movements except for mild psychomotor retardation. Cooperative with exam in mild distress. Speech was more normal rate and volume. Mood described as a little better, affect less restricted.? Thought process was organized. ? Thought contact: patient en dorsed?resolving suicidal but no homicidal ideation, there were no delusions reported or noted, he denied hallucinations.? Attention and concentration appeared intact and memory appeared reliable but none were formally tested. Patient is alert and oriented times three. Insight and judgment appeared limited, but improving.? Impulse control: Limited.? Vitals/I&O/Wt Last Vital Signs Temp 98.4 F 01/23/22 20:25 Pulse 86 01/23/22 20:25 Resp 18 01/23/22 20:25 BP 151/93 01/23/22 20:25 Pulse Ox 97 01/23/22 20:25 O2 Del Method 01/23/22 07:15 FiO2 95 01/21/22 20:46 Data NPU : 01/18/22 16:48 01/18/22 16:48 A&P Assessment and plan (1) Schizoaffective disorder, depressive type: Status: Acute (2) Depression with suicidal ideation: Status: Acute (3) Tobacco abuse: Status: Acute (4) PTSD (post-traumatic stress disorder): Status: Acute Plan This is a 51-year-old white male with a long history of alcohol addiction, depression and active alcohol use who presents endorsing suicidality and a desire to engage in active treatment. 1.? Continue current medication.??Temporary addition of as needed muscle relaxer. And adding or restarting Neurontin 400 mg p.o. 3 times daily. 2.? Continue every 15 minute checks for safety. 3.? Encourage individual, group and milieu therapies. 4.? Encourage sober living treatment after discharge at the highest level of care to which he is willing to commit. 5.? Placed on CIWA. Involuntary Hold Information 96 Hour Hold: 96 Hour Involuntary Admission: No Attestations NPU Medical Necessity Statement*: Inpatient hospitalization is medically necessary and the clinically appropriate intervention at this time. We will monitor medication to make changes as indicated. Likely length of stay 1-3 days. Coding Level of Care Code Acute Environmental Conservation Professor for Carlton Macield Diagnoses Schizoaffective disorder, depressive type F25.1 Depression with suicidal ideation F32.A; R45.851 Tobacco abuse Z72.0 PTSD (post-traumatic stress disorder) F43.10
[2022-01-23] MEDS: trazodone 50 mg Tablet PO ×2 (20:24→23:28)
[2022-01-23] MEDS: quetiapine 100 mg Tablet 400 MG PO (20:24)
[2022-01-23] MEDS: acetaminophen 325 mg Tablet 650 MG PO (20:24)
[2022-01-23 20:25] VITALS: BP 151/93; PULSE 86; RESP 18; TEMP 36.9; O2SAT 97
[2022-01-24] MEDS: loperamide 2 mg Capsule PO ×2 (04:00→09:52)
[2022-01-24 06:00] VITALS: BP 132/86; PULSE 84; RESP 17; TEMP 36.7; O2SAT 96
[2022-01-24] MEDS: simethicone 80 mg Chew PO (09:51)
[2022-01-24] MEDS: acetaminophen 325 mg Tablet 650 MG PO (09:51)
[2022-01-24] MEDS: gabapentin 400 mg Capsule PO (09:51)
[2022-01-24] MEDS: OLANZapine 5 mg ODT PO (09:52)
[2022-01-24] MEDS: thiamine 100 mg Tablet PO (09:52)
[2022-01-24] MEDS: famotidine 20 mg Tablet PO (09:52)
[2022-01-24] MEDS: ondansetron 4 MG Tablet PO (09:52)
[2022-01-24] MEDS: folic acid 1 mg Tablet PO (09:52)
[2022-01-24] MEDS: tizanidine 4 mg Tablet 2 MG PO (09:53)
[2022-01-24] MEDS: multivitamin therapeutic Tablet 1 TAB PO (09:53)
[2022-01-24] MEDS: diazePAM 5 mg Tablet PO (09:55)
[2022-01-24] MEDS: nicotine 21 mg Patch 1 PATCH TRANSDERMA (10:21)
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
[2022-01-24 13:09] VITALS: BP 132/86; PULSE 84; RESP 17; TEMP 36.7; O2SAT 96
== END 2022-01-24 13:40 | disposition home or self-care (01) | DRG 885 ==
LOC: ER 18:12 → NP 18:36
PROVIDERS: Admitting Provider Psychiatry & Neurology Psychiatry; Emergency Provider Emergency Medicine; PCP Family Medicine; Visit Provider Psychiatry & Neurology Psychiatry
DX: F25.1 Schizoaffective disorder, depressive type (principal); R45.851 Suicidal ideations; F10.20 Alcohol dependence, uncomplicated; Z91.14 Patient's other noncompliance with medication regimen; K21.9 Gastro-esophageal reflux disease without esophagitis; G89.29 Other chronic pain; F43.10 Post-traumatic stress disorder, unspecified; F17.200 Nicotine dependence, unspecified, uncomplicated; Z81.8 Family history of other mental and behavioral disorders
CPT/HCPCS: 80053; 80306; 80307; 83690; 84439; 84443; 85025; 87426; 93005; 97150; 97165; 99285; Q0162

== ENCOUNTER 2022-02-15 06:00 | Outpatient (RCR) | payer MEDICAID, SELFPAY | END 2022-02-28 23:59 | disposition home or self-care (01) | LOC: MPT 06:00 | PROVIDERS: PCP Family Medicine; Visit Provider Family Medicine | DX: M54.2 Cervicalgia (principal); G89.29 Other chronic pain; M19.019 Primary osteoarthritis, unspecified shoulder | CPT/HCPCS: 97110; 97140; 97162; G0283 ==

== ENCOUNTER 2022-03-01 06:00 | Outpatient (RCR) | payer MEDICAID, SELFPAY | END 2022-03-27 12:31 | disposition home or self-care (01) | LOC: MPT 06:00 | PROVIDERS: PCP Family Medicine; Visit Provider Family Medicine | DX: M54.2 Cervicalgia (principal); G89.29 Other chronic pain; M19.019 Primary osteoarthritis, unspecified shoulder | CPT/HCPCS: 97110; 97140; G0283 ==